=== PATIENT | male | born 1945 | race Caucasian/White ===

== ENCOUNTER 2016-09-20 10:06 | Emergency (ER) | payer MEDICARE ==
[2016-09-20 10:12] VITALS: BP 157/75
--- NOTE | 2016-09-20 10:16 | ER Document Report ---
HPI - HPI Patient complains to provider of: ear pain Onset: Other - months Onset/Duration: Persistent Quality of pain: No pain Pain Level: Denies Context: Patient presents to the emergency department with complaints that his ears are clogged with wax. Patient reports he was here about a year ago and had his ears irrigated. He reports his primary care provider Dr. Figueroa does not irrigate ears. He denies pain. He denies other symptoms such as fever vomiting diarrhea. He reports he was told he needed hearing aids but he thinks it's because his ears are clogged with wax. Associated Symptoms: None Exacerbated by: Denies Relieved by: Denies Similar symptoms previously: Yes Recently seen / treated by doctor: No - REPRODUCTIVE Reproductive: DENIES: : - DERM Skin Color: Normal Past Medical History - General Information source: Patient - Social History Smoking Status: Current Every Day Smoker Cigarette use (# per day): Yes Frequency of alcohol use: None Drug Abuse: None Family History: None Patient has suicidal ideation: No Patient has homicidal ideation: No - Past Medical History Cardiac Medical History: Reports: Hx Heart Attack, Hx Hypercholesterolemia, Hx Hypertension Pulmonary Medical History: Denies: Hx Asthma Neurological Medical History: Denies: Hx Cerebrovascular Accident, Hx Seizures Renal/ Medical History: Denies: Hx Peritoneal Dialysis GI Medical History: Denies: Hx Hepatitis, Hx Hiatal Hernia, Hx Ulcer Psychiatric Medical History: Reports: Hx Anxiety, Hx Depression Infectious Medical History: Denies: Hx Hepatitis Past Surgical History: Reports: Hx Appendectomy, Hx Cardiac Catheterization, Hx Orthopedic Surgery - Broken Leg, Arm, and hip replacement. Denies: Hx Open Heart Surgery - cleaned out arteries, Hx Pacemaker - Immunizations Hx Diphtheria, Pertussis, Tetanus Vaccination: Yes Hx Pneumococcal Vaccination: 06/03/14 Vertical Provider Document - CONSTITUTIONAL Agree With Documented VS: Yes Exam Limitations: No Limitations General Appearance: WD/WN, No Apparent Distress - INFECTION CONTROL TRAVEL OUTSIDE OF THE [place] IN LAST 30 DAYS: No - HEENT HEENT: Atraumatic, Normocephalic. negative: Conjuctival Injection Notes: Bilateral ears with soft wax noted- after irrigation ears benign, no erythema, no swelling - NECK Neck: Normal Inspection, Supple. negative: Lymphadenopathy-Left, Lymphadenopathy-Right - RESPIRATORY Respiratory: Breath Sounds Normal, No Respiratory Distress O2 Sat by Pulse Oximetry: 98 - CARDIOVASCULAR Cardiovascular: Regular Rate - MUSCULOSKELETAL/EXTREMETIES Musculoskeletal/Extremeties: TRE [place] - NEURO Level of Consciousness: Awake, Alert, Appropriate Motor/Sensory: No Motor Deficit - DERM Integumentary: Warm, Dry Course - Re-evaluation Re-evalutation: 09/20/16 Bilateral ear is irrigated some soft earwax pain. Patient reports he doesn't think he has a hearing problem. At the same time he reports he won his hearing aids from [employer] because he had the worst hearing. Patient was instructed on importance of not using a Q-tip and pushing earwax into the years. He was also instructed to follow up with ENT for evaluation. - Vital Signs Vital signs: Temp Pulse Resp BP Pulse Ox 97.7 F 71 18 157/75 H 98 09/20/16 10:09 09/20/16 10:09 09/20/16 10:09 09/20/16 10:09/20/16 10:09 Discharge - Discharge Clinical Impression: Elevated blood pressure reading, Irritation of both ears Condition: Stable Disposition: HOME, SELF-CARE Additional Instructions: *You have been treated for ear irrigation *Use over the counter ear wax softening medication *Follow up with an ENT provider for evaluation and treatment of your ears *Follow up with Dr Figueroa within one week for recheck *Return to the ED for worsening condition,changes, needs Forms: Elevated Blood Pressure Referrals: ENT [Provider Group] - Follow up in 1 week
[2016-09-20] MEDS ORDERED: DOCUSATE SODIUM 100 MG CAPSULE BTH_EAR ONE (10:27)
== END 2016-09-20 11:10 | disposition home or self-care (01) ==
LOC: ER 10:06
DX: H92.03 Otalgia, bilateral (principal); R03.0 Elevated blood-pressure reading, without diagnosis of hypertension; F17.210 Nicotine dependence, cigarettes, uncomplicated
CPT/HCPCS: 99282; A9270

== ENCOUNTER 2017-07-22 08:02 | Emergency (ER) | payer MEDICARE, MEDICAID ==
[2017-07-22] MEDS ORDERED: IBUPROFEN 600 MG TABLET PO ONE (08:19)
--- NOTE | 2017-07-22 08:20 | ER Document Report ---
ED General - General Chief Complaint: Finger Injury Stated Complaint: FALL/FINGER PAIN Time Seen by Provider: 07/22/17 08:18 Mode of Arrival: Ambulatory Information source: Patient Notes: 72-year-old male presents after mechanical fall injuring his hand. He says he fell backwards and tried to catch himself. He notes tenderness of the fifth digit. Skin abrasion to the fourth TRAVEL OUTSIDE OF THE [place] IN LAST 30 DAYS: No - HPI Onset: Yesterday Onset/Duration: Persistent Quality of pain: Achy Severity: Mild Pain Level: 1 Associated symptoms: Body/muscle aches Exacerbated by: Movement Relieved by: Denies Similar symptoms previously: No Recently seen / treated by doctor: No - Related Data Allergies/Adverse Reactions: No Known Allergies Allergy (Verified 09/20/16 10:09) Past Medical History - Social History Smoking Status: Never Smoker Cigarette use (# per day): No Chew tobacco use (# tins/day): No Smoking Education Provided: No Family History: None - Past Medical History Cardiac Medical History: Reports: Hx Heart Attack, Hx Hypercholesterolemia, Hx Hypertension Pulmonary Medical History: Denies: Hx Asthma Neurological Medical History: Denies: Hx Cerebrovascular Accident, Hx Seizures Renal/ Medical History: Denies: Hx Peritoneal Dialysis GI Medical History: Denies: Hx Hepatitis, Hx Hiatal Hernia, Hx Ulcer Psychiatric Medical History: Reports: Hx Anxiety, Hx Depression Infectious Medical History: Denies: Hx Hepatitis Past Surgical History: Reports: Hx Appendectomy, Hx Cardiac Catheterization, Hx Orthopedic Surgery - Broken Leg, Arm, and hip replacement. Denies: Hx Open Heart Surgery - cleaned out arteries, Hx Pacemaker - Immunizations Hx Diphtheria, Pertussis, Tetanus Vaccination: Yes Hx Pneumococcal Vaccination: 06/03/14 Review of Systems - Review of Systems Notes: REVIEW OF SYSTEMS: CONSTITUTIONAL : Denies fever, chills, or sweats. Denies recent illness. EENT: Denies eye, ear, throat, or mouth pain or symptoms. Denies nasal or sinus congestion or discharge. Denies throat, tongue, or mouth swelling or difficulty swallowing. CARDIOVASCULAR: Denies chest pain. Denies palpitations or racing or irregular heart beat. Denies ankle edema. RESPIRATORY: Denies cough, cold, or chest congestion. Denies shortness of breath, difficulty breathing, or wheezing. GASTROINTESTINAL: Denies abdominal pain or distention. Denies nausea, vomiting , or diarrhea. Denies blood in vomitus, stools, or per rectum. Denies black, tarry stools. Denies constipation. GENITOURINARY: Denies difficulty urinating, painful urination, burning, frequency, blood in urine, or discharge. MUSCULOSKELETAL: Admits to finger injury SKIN: Denies rash, lesions or sores. HEMATOLOGIC : Denies easy bruising or bleeding. LYMPHATIC: Denies swollen, enlarged glands. NEUROLOGICAL: Denies confusion or altered mental status. Denies passing out or loss of consciousness. Denies dizziness or lightheadedness. Denies headache. Denies weakness or paralysis or loss of use of either side. Denies problems with gait or speech. Denies sensory loss, numbness, or tingling. Denies seizures. PSYCHIATRIC: Denies anxiety or stress. Denies depression, suicidal ideation, or homicidal ideation. ALL OTHER SYSTEMS REVIEWED AND NEGATIVE. Dictation was performed using [employer] voice recognition software PHYSICAL EXAMINATION: GENERAL: Well-appearing, well-nourished and in no acute distress. HEAD: Atraumatic, normocephalic. EYES: Pupils equal round and reactive to light, extraocular movements intact, sclera anicteric, conjunctiva are normal. ENT: Nares patent, oropharynx clear without exudates. Moist mucous membranes. Difficulty hearing NECK: Normal range of motion, supple without lymphadenopathy LUNGS: Breath sounds clear to auscultation bilaterally and equal. No wheezes rales or rhonchi. HEART: Regular rate and rhythm without murmurs ABDOMEN: Soft, nontender, nondistended abdomen. No guarding, no rebound. No masses appreciated. Musculoskeletal: Swelling with angulation of the fifth digit abrasion of the fourth dorsal NEUROLOGICAL: Cranial nerves grossly intact. Normal speech, normal gait. Normal sensory, motor exams PSYCH: Normal mood, normal affect. SKIN: Mild swelling discoloration of the fifth digit on the right hand Physical Exam - Vital signs Vitals: Temp Pulse Resp BP Pulse Ox 98.2 F 93 20 123/89 H 98 07/22/17 08:09 07/22/17 08:09 07/22/17 08:09 07/22/17 08:09 07/22/17 08:09 Course - Re-evaluation Re-evalutation: 07/22/17 11:42 X-ray was consistent with a proximal phalanx fracture, the finger will be placed in a splint the wound was cleansed patient will be given orthopedic follow-up and pain control there is no significant dislocation but there is no obvious comminuted fracture After performing a Medical Screening Examination, I estimate there is LOW risk for INTRACRANIAL HEMORRHAGE, UNSTABLE SPINE FRACTURE, CENTRAL CORD SYNDROME, CAUDA EQUINA, THORACIC AORTIC DISSECTION, PNEUMOTHORAX, PERFORATED BOWEL, RUPTURED ABDOMINAL AORTIC ANEURYSM, ACUTE TENDON RUPTURE, COMPARTMENT SYNDROME, or OPEN FRACTURE, thus I consider the discharge disposition reasonable. Also, there is no evidence or peritonitis, sepsis, or toxicity. I have reevaluated this patient multiple times and no significant life threatening changes are noted. The patient and I have discussed the diagnosis and risks, and we agree with discharging home to follow-up with their primary doctor with the understanding that symptoms and presentations can change. We also discussed returning to the Emergency Department immediately if new or worsening symptoms occur. We have discussed the symptoms which are most concerning (e.g., bloody stool, fever, changing or worsening pain, vomiting) that necessitate immediate return. - Vital Signs Vital signs: Temp Pulse Resp BP Pulse Ox 98.2 F 93 20 123/89 H 98 07/22/17 08:09 07/22/17 08:09 07/22/17 08:09 07/22/17 08:09 07/22/17 08:09 - Diagnostic Test Radiology reviewed: Image reviewed, Reports reviewed Procedures - Immobilization Right 5th digit Time completed: 11:00 Pre-Proc Neuro Vasc Exam: Normal Immobilizer type: Finger splint (Static) Performed by: RN, PCT Post-Proc Neuro Vasc Exam: Normal Alignment checked and good: Yes Discharge - Discharge Clinical Impression: Finger fracture, right Qualifiers: Encounter type: initial encounter Finger: little finger Fracture type: closed Phalanx: proximal Fracture alignment: nondisplaced Qualified Code(s): S62.646A - Nondisplaced fracture of proximal phalanx of right little finger, initial encounter for closed fracture Condition: Stable Disposition: HOME, SELF-CARE Instructions: Fractured Finger ([facility]) Prescriptions: Hydrocodone/Acetaminophen [[place] 5-325 mg Tablet] 1 tab PO Q6 #14 tablet Referrals: XIOMARA HAWTHORNE DO [ACTIVE STAFF] - Follow up in 3-5 days
--- NOTE | 2017-07-22 08:43 | RADIOLOGY REPORT (SQ) ---
EXAM DESCRIPTION: HAND RIGHT 3 VIEWS COMPLETED DATE/TIME: 07/22/2017 8:36 am REASON FOR STUDY: 5th digit COMPARISON: None. EXAM PARAMETERS: NUMBER OF VIEWS: Three views. TECHNIQUE: AP, lateral and oblique radiographic images acquired of the right hand. LIMITATIONS: None. FINDINGS: MINERALIZATION: Normal. BONES: Comminuted impacted fracture at the base of the proximal phalanx of the 5th finger. Old fract ure of the 5th metacarpal. JOINTS: Degenerative changes in the interphalangeal joints with osteophytes. SOFT TISSUES: No soft tissue swelling. No foreign body. OTHER: No other significant finding. IMPRESSION: COMMINUTED IMPACTED FRACTURE AT THE BASE OF THE PROXIMAL PHALANX OF THE 5TH FINGER. TECHNICAL DOCUMENTATION: JOB ID: [id number] [employer]- All Rights Reserved
[2017-07-22] MEDS ORDERED: HYDROCODONE/ACETAMINOPHEN 5-325 MG TABLET PO ONE (09:11)
[2017-07-22 10:08] VITALS: BP 132/80
== END 2017-07-22 10:05 | disposition home or self-care (01) ==
LOC: ER 08:02
DX: S62.646A Nondisplaced fracture of proximal phalanx of right little finger, initial encounter for closed fracture (principal); S60.418A Abrasion of other finger, initial encounter; W01.0XXA Fall on same level from slipping, tripping and stumbling without subsequent striking against object, initial encounter; I10 Essential (primary) hypertension; I25.2 Old myocardial infarction
CPT/HCPCS: 99283; 73130; A9270

== ENCOUNTER 2017-07-24 06:24 | Emergency (ER) | payer MEDICARE, MEDICAID ==
[2017-07-24 06:30] VITALS: BP 134/72
--- NOTE | 2017-07-24 07:49 | ER Document Report ---
HPI - HPI Pain Level: Denies Notes: Patient is 72-year-old male who presents ED requesting a splint to make his finger straight status post fracture 2 days ago. Patient states that he was told that he should come back here for a new splint if he needed to. He has not yet called Ortho for his finger fracture. Pt states that he does not need to see anyone else and just wants a finger splint that goes over top of his finger. No other concerns or complaints. He has not had any worsening pain. Pt still able to move his finger, but does not swelling. Denies any headache, fever, neck pain, URI, sore throat, chest pain, palpitations, syncope, cough, shortness of breath, wheeze, dyspnea, abdominal pain, nausea/vomiting/diarrhea, urinary retention, dysuria, hematuria, numbness/tingling, or rash. - ROS Systems Reviewed and Negative: Yes All other systems reviewed and negative - REPRODUCTIVE Reproductive: DENIES: : Past Medical History - Social History Smoking Status: Current Every Day Smoker Family History: None - Past Medical History Cardiac Medical History: Reports: Hx Heart Attack, Hx Hypercholesterolemia, Hx Hypertension Pulmonary Medical History: Denies: Hx Asthma Neurological Medical History: Denies: Hx Cerebrovascular Accident, Hx Seizures Renal/ Medical History: Denies: Hx Peritoneal Dialysis GI Medical History: Denies: Hx Hepatitis, Hx Hiatal Hernia, Hx Ulcer Psychiatric Medical History: Reports: Hx Anxiety, Hx Depression Infectious Medical History: Denies: Hx Hepatitis Past Surgical History: Reports: Hx Appendectomy, Hx Cardiac Catheterization, Hx Orthopedic Surgery - Broken Leg, Arm, and hip replacement. Denies: Hx Open Heart Surgery - cleaned out arteries, Hx Pacemaker - Immunizations Hx Diphtheria, Pertussis, Tetanus Vaccination: Yes Hx Pneumococcal Vaccination: 06/03/14 Vertical Provider Document - CONSTITUTIONAL Agree With Documented VS: Yes Notes: PHYSICAL EXAMINATION: GENERAL: Well-appearing, well-nourished and in no acute distress. LUNGS: Breath sounds clear to auscultation bilaterally and equal. No wheezes rales or rhonchi. HEART: Regular rate and rhythm without murmurs, rubs, gallops. Musculoskeletal: Rt hand: + deformity at MCP 5th digit. + swelling to the 5th phalanx. Non-tender. N/V intact distal. Extremities: No cyanosis, clubbing, or edema b/l. Peripheral pulses 2+. Capillary refill less than 3 seconds. NEUROLOGICAL: Normal speech, normal gait. Normal sensory, motor exams PSYCH: Normal mood, normal affect. SKIN: Warm, Dry, normal turgor, no rashes or lesions noted. - INFECTION CONTROL TRAVEL OUTSIDE OF THE [place] IN LAST 30 DAYS: No - RESPIRATORY O2 Sat by Pulse Oximetry: 96 Course - Re-evaluation Re-evalutation: 07/24/17 07:56 Patient is an afebrile, well-hydrated, 72-year-old male who presents to the ED with continued proximal, comminuted, fifth phalanx fracture of the right hand. Vitals are stable. PE is otherwise unremarkable for any neurovascular compromise or septic joint. Patient is under the impression that he does not need to be seen by orthopedics, but upon review of the x-ray looks like it might need a wire. Yesterday I told patient that he is most concerned about his PIP joint being in a flexed position to the swelling, but that is not where the fracture is in the his finger will straighten out at that area and the swelling improves. Advised patient that he has a comminuted fracture at the base of his fifth finger and that is why he has the deformity there and he needs to be evaluated by orthopedics. Recommend conservative measures for symptoms. call orthopedics today and schedule an appointment for further evaluation and management. Recheck with your PCM in 3-5 days as well. Return to the ED with any worsening/concerning symptoms otherwise as reviewed discharge. Patient was not happy that I would not give him a different splint for his PIP joint, I again reiterated the need to call orthopedics in the keep the ulnar gutter style splint that was placed originally. Thoroughly reviewed the risks and benefits of seeing orthopedics versus not doing anything about it at home. patient verbalized understanding of this. Patient continued to ask the same question, and I am not sure he wants to understand what I keep telling him about the swelling and further eval to make sure his finger does not heal deformed with dec function. Pt would not sign his discharge paper and will go call his doctor. This was witnessed by multiple nurses including charge. Repeated over and over again to call the number on his discharge sheet and schedule an appointment. - Vital Signs Vital signs: Temp Pulse Resp BP Pulse Ox 97.5 F 85 16 134/72 H 96 07/24/17 06:29 07/24/17 06:29 07/24/17 06:29 07/24/17 06:29 07/24/17 06:29 Discharge - Discharge Clinical Impression: Fracture of phalanx of finger of right hand Qualifiers: Encounter type: initial encounter Finger: little finger Fracture type: closed Phalanx: proximal Fracture alignment: nondisplaced Qualified Code(s): S62.646A - Nondisplaced fracture of proximal phalanx of right little finger, initial encounter for closed fracture Condition: Stable Disposition: HOME, SELF-CARE Instructions: Splint Precautions ([facility]) Additional Instructions: Rest, Ice, Compression, Elevation Use splint as directed Tylenol/ibuprofen as needed F/u with your PCP in 3-5 days for a recheck Call orthopedics today to schedule an appointment for further evaluation and management Return to the ED with any worsening symptoms and/or development of fever, headache, chest pain, palpitations, syncope, shortness of breath, trouble breathing, abdominal pain, n/v/d, muscle weakness/paralysis, numbness/tingling, swelling, redness, or other worsening symptoms that are concerning to you. Forms: Elevated Blood Pressure, Smoking Cessation Education Referrals: [facility] [Provider Group] - 07/24/17
== END 2017-07-24 08:28 | disposition home or self-care (01) ==
LOC: ER 06:24
DX: S62.646A Nondisplaced fracture of proximal phalanx of right little finger, initial encounter for closed fracture (principal); X58.XXXA Exposure to other specified factors, initial encounter; F17.200 Nicotine dependence, unspecified, uncomplicated; I25.2 Old myocardial infarction; I10 Essential (primary) hypertension
CPT/HCPCS: 99282

== ENCOUNTER 2019-05-20 18:43 | Emergency (ER) | payer MEDICARE, MEDICAID ==
--- NOTE | 2019-05-20 20:08 | ER Document Report ---
ED Medical Screen (RME) - General Chief Complaint: Laceration Stated Complaint: FALL/RIGHT ARM LACERATION Time Seen by Provider: 05/20/19 20:02 Primary Care Provider: JUAN MONTENEGRO MD [Primary Care Provider] - Follow up as needed Mode of Arrival: Wheelchair Information source: Patient, Relative Notes: 74-year-old male presented to ED for laceration to the upper left arm and elbow and lower arm he also has some scratches to the right arm. He was confused about what happened he said he fell on his stump but his grandson found him in the scrap yard under a pile of 10. Daughter states he fell about 6 PM. Patient is alert and oriented and answering questions appropriately at this time. He does have multiple lacerations will need to be cleaned and sutured. He is on blood thinners. Tetanus immunization will be ordered at this time. I have updated his history. I have greeted and performed a rapid initial assessment of this patient. A comprehensive ED assessment and evaluation of the patient, analysis of test results and completion of medical decision making process will be conducted by an additional ED providers. TRAVEL OUTSIDE OF THE [place] IN LAST 30 DAYS: No - Related Data Allergies/Adverse Reactions: No Known Allergies Allergy (Verified 05/20/19 20:00) Past Medical History - General Information source: Patient - Social History Cigarette use (# per day): Yes - 1-1/2 pack/day Frequency of alcohol use: None Drug Abuse: None Lives with: Family Family history: Reviewed & Not Pertinent - Past Medical History Cardiac Medical History: Reports: Hx Heart Attack, Hx Hypercholesterolemia, Hx Hypertension Pulmonary Medical History: Reports: None EENT Medical History: Reports: None Neurological Medical History: Reports: None Endocrine Medical History: Reports: None Renal/ Medical History: Reports: None Malignancy Medical History: Reports None GI Medical History: Reports: None Musculoskeltal Medical History: Reports Hx Arthritis, Reports Hx Musculoskeletal Deformity, Reports Hx Musculoskeletal Trauma Skin Medical History: Reports None - Also cleaned out the arteries and 1 today because of you ER and you backcut you will get a tetanus unless you can tell me a day Psychiatric Medical History: Reports: Hx Anxiety, Hx Depression Traumatic Medical History: Reports: Hx Fractures Infectious Medical History: Reports: None Past Surgical History: Reports: Hx Appendectomy, Hx Cardiac Catheterization, Hx Coronary Stent - Also cleaned out the arteries, Hx Orthopedic Surgery - Broken Leg, Arm, and hip replacement - Immunizations Hx Diphtheria, Pertussis, Tetanus Vaccination: Yes Physical Exam - Vital signs Vitals: Temp Pulse Resp BP Pulse Ox 98.0 F 107 H 20 152/83 H 98 05/20/19 19:42 05/20/19 19:42 05/20/19 19:42 05/20/19 19:42 05/20/19 19:42 Course - Vital Signs Vital signs: Temp Pulse Resp BP Pulse Ox 98.0 F 107 H 20 152/83 H 98 05/20/19 19:42 05/20/19 19:42 05/20/19 19:42 05/20/19 19:42 05/20/19 19:42 Doctor's Discharge - Discharge Referrals: JUAN MONTENEGRO MD [Primary Care Provider] - Follow up as needed
[2019-05-20] MEDS ORDERED: DIPH/PERTUSS(ACELL)/TETANUS VAC/PF 0.5 ML SYR (>=10YO) IM ONE (20:09)
--- NOTE | 2019-05-20 21:10 | RADIOLOGY REPORT (SQ) ---
2 VIEWS OF RIGHT FOREARM EXAM DATE: 05/20/2019 8:12 PM IMPORT MANAGER HISTORY: Arm pain. COMPARISON: None. FINDINGS: No acute fracture or dislocation is seen. The joint spaces are preserved. No radiopaque foreign body is identified. The surrounding soft tissues are swollen. No elbow joint effusion is seen. IMPRESSION: No acute fracture or malalignment.
--- NOTE | 2019-05-20 21:10 | RADIOLOGY REPORT (SQ) ---
EXAM DESCRIPTION: Right humerus RadLex: XR HUMERUS Views: 2 CLINICAL HISTORY: 74 years Male, fallinjury COMPARISON: None. FINDINGS: Negative for acute fracture, dislocation, or radiopaque foreign body. IMPRESSION: 1. No acute findings.
--- NOTE | 2019-05-20 22:09 | ER Document Report ---
ED Fall - General Chief Complaint: Laceration Stated Complaint: FALL/RIGHT ARM LACERATION Time Seen by Provider: 05/20/19 20:02 Primary Care Provider: RANGEL SPARROW MD [ACTIVE STAFF] - Follow up tomorrow Mode of Arrival: Wheelchair Information source: Patient Notes: Patient is a 74-year-old male that comes to the emergency department for chief complaint of of injuries sustained when patient was rummaging in a trash dump and trash fell over onto the patient. This was witnessed by the of the daughter at bedside, reportedly a variety of verbal fell down on the patient. Patient was able to get out and walk but he sustained abrasions to the right forearm, bruise to the left shoulder, bruise to the right lower rib, and his hat was covered in dirt. Patient also has tiny abrasions over the left ear. Patient does not remember the event but family states that patient has dementia and has poor memory at baseline, they state this is expected for him. He was not knocked out, he is not on a blood thinner, he denies chest pain, abdominal pain, headache, focal numbness or weakness, incontinence. Patient's tetanus is not up-to-date. TRAVEL OUTSIDE OF THE [place] IN LAST 30 DAYS: No - Related data Allergies/Adverse Reactions: No Known Allergies Allergy (Verified 05/20/19 20:00) Home Medications: BLOOD THINNERS Past Medical History - General Information source: Patient - Social History Smoking Status: Current Every Day Smoker Cigarette use (# per day): Yes - 1-1/2 pack/day Frequency of alcohol use: None Drug Abuse: None Lives with: Family Family History: None Patient has suicidal ideation: No Patient has homicidal ideation: No - Past Medical History Cardiac Medical History: Reports: Hx Heart Attack, Hx Hypercholesterolemia, Hx Hypertension Pulmonary Medical History: Reports: None EENT Medical History: Reports: None Neurological Medical History: Reports: None Endocrine Medical History: Reports: None Renal/ Medical History: Reports: None Malignancy Medical History: Reports None GI Medical History: Reports: None Musculoskeletal Medical History: Reports Hx Arthritis, Reports Hx Musculoskeletal Deformity, Reports Hx Musculoskeletal Trauma Skin Medical History: Reports None - Also cleaned out the arteries and 1 today because of you ER and you backcut you will get a tetanus unless you can tell me a day Psychiatric Medical History: Reports: Hx Anxiety, Hx Depression Traumatic Medical History: Reports: Hx Fractures Infectious Medical History: Reports: None Past Surgical History: Reports: Hx Appendectomy, Hx Cardiac Catheterization, Hx Coronary Stent - Also cleaned out the arteries, Hx Orthopedic Surgery - Broken Leg, Arm, and hip replacement - Immunizations Hx Diphtheria, Pertussis, Tetanus Vaccination: Yes Hx Pneumococcal Vaccination: 06/03/14 Review of Systems - Review of Systems Constitutional: No symptoms reported EENT: No symptoms reported Cardiovascular: No symptoms reported Respiratory: No symptoms reported Gastrointestinal: No symptoms reported Genitourinary: No symptoms reported Male Genitourinary: No symptoms reported Musculoskeletal: See HPI Skin: See HPI Hematologic/Lymphatic: No symptoms reported Neurological/Psychological: See HPI Physical Exam - Vital signs Vitals: Temp Resp Pulse Ox 98.0 F 20 98 05/20/19 18:44 05/20/19 18:44 05/20/19 18:44 - Notes Notes: GENERAL: Alert, interacts well. No acute distress. HEAD: Normocephalic, atraumatic. EYES: Pupils equal, round, and reactive to light. Extraocular movements intact. ENT: Oral mucosa moist, tongue midline. Oropharynx unremarkable. Airway patent. Tiny abrasion over the left ear at the helix without current bleeding. No other signs of trauma over the head. Hard of hearing. NECK: Full range of motion. Supple. Trachea midline. LUNGS: Clear to auscultation bilaterally, no wheezes, rales, or rhonchi. No respiratory distress. There is a small bruise over the right lateral inferior ribs, no surrounding swelling, no other signs of trauma over the chest. No significant pain over the area. HEART: Regular rate and rhythm. No murmur ABDOMEN: Soft, non-tender. Non-distended. No signs of trauma. EXTREMITIES: Superficial skin abrasions over the elbow laterally and also over the distal forearm medially on the right arm. No significant soft tissue swelling, full range of motion. No significant lacerations, all areas are superficial only. Normal distal neurovascular exam. There is swelling over the left clavicle and left shoulder with a large bruise laterally and posteriorly over the shoulder tip. Left arm is unremarkable. Questionable minimal tenderness over both hips, normal knees, ankles, distal neurovascular exam. Normal extremities otherwise. BACK: no cervical, thoracic, lumbar midline tenderness. No saddle anesthesia, normal distal neurovascular exam. Moves all extremities in full range of motion. NEUROLOGICAL: Alert and oriented to person and place but not to all of the events. Normal speech. Cranial nerves II through XII grossly intact. PSYCH: Normal affect, normal mood. SKIN: Warm, dry, normal turgor. No rashes or lesions noted. Course - Re-evaluation Re-evalutation: I did review the x-rays of the arm from triage, unremarkable. Skin abrasions only over the area, these were cleaned thoroughly, dressed, and Steri-Stripped. Additional imaging had to be ordered based on his evaluation, no rib fracture or lung collapse, patient denying any rib pain but he does have a bruise over the right lower lateral ribs so this was included. He also be given incentive spirometry to avoid pneumonia because of bruised ribs and hypoventilation. Imaging of the head and neck unremarkable, left clavicle is fractured, no neurovascular deficits. No other concerning injuries noted. Discussed with patient and family at length. Placed in sling, provided with pain medication, discussed wound care, discussed monitoring, follow-up, return precautions. They state appreciation and agreement. - Vital Signs Vital signs: Temp Pulse Resp BP Pulse Ox 97.8 F 94 14 148/72 H 98 05/21/19 00:15 05/21/19 00:15 05/21/19 00:15 05/21/19 00:15 05/21/19 00:15 Procedures - Immobilization Left arm/shoulder Pre-Proc Neuro Vasc Exam: Normal Immobilizer type: Sling Performed by: RN Post-Proc Neuro Vasc Exam: Normal Alignment checked and good: Yes Discharge - Discharge Clinical Impression: Skin tear Rib contusion Qualifiers: Encounter type: initial encounter Laterality: right Qualified Code(s): S20.211A - Contusion of right front wall of thorax, initial encounter Closed left clavicular fracture Qualifiers: Encounter type: initial encounter Clavicle location: lateral end Fracture alignment: displaced Qualified Code(s): S42.032A - Displaced fracture of lateral end of left clavicle, initial encounter for closed fracture Condition: Stable Disposition: HOME, SELF-CARE Additional Instructions: He has a fracture of the left clavicle, he also has skin tears on the right arm. He has bruises over the right ribs. For the fracture wear the sling, take 1/2-1 of the pain medication pills as needed for pain, if you so also use the stool softener to avoid constipation. Follow closely with orthopedics for additional management, see referral. For the skin tears the Steri-Strips will come off on their own in a few days, this area can be cleaned gently with soap and water and redressed. Keep bacitracin over the wounds otherwise. For the bruised area/bruised ribs it is important that he takes deep breaths several times a day to avoid developing pneumonia. Use the incentive spirometry as shown daily to avoid this. Return for any concerning symptoms including difficulty breathing, fever, developing infection over the arm, or any other concerning or worsening symptoms. Prescriptions: Docusate Sodium [Colace 100 mg Capsule] 100 mg PO ASDIR PRN #30 capsule PRN Reason: Morphine Sulfate [Morphine Ir 15 Mg Tablet] 15 mg PO TID PRN #12 tablet PRN Reason: Referrals: RANGLE SPARROW MD [ACTIVE STAFF] - Follow up tomorrow
--- NOTE | 2019-05-20 22:49 | RADIOLOGY REPORT (SQ) ---
EXAM DESCRIPTION: CT HEAD WITHOUT IV CONTRAST COMPLETED DATE/TME: 05/20/2019 22:05 CLINICAL HISTORY: 74 years, Male, fall, head injury, amnesia to event COMPARISON: None. TECHNIQUE: 208 Images stored on PACS. All CT scanners at this facility use dose modulation, iterative reconstruction, and/or weight based dosing when appropriate to reduce radiation dose to as low as reasonably achievable (ALARA). [facility]: Dose Right [facility]: CareDose [facility]: Dose Right [facility]: Teradose 4D [facility]: [employer] LIMITATIONS: None. FINDINGS: The globes are intact. The paranasal sinuses and mastoid air cells are unremarkable. There is no displaced or depressed skull fracture. There is no intra or extra-axial hemorrhage. Mild age-appropriate atrophy. CT is limited for evaluation of acute infarct. No CT evidence for large or territorial acute infarct. No mass. No midline shift. Hypodensities in the periventricular and subcortical white matter, consistent with small vessel ischemic change IMPRESSION: No acute intracranial abnormality. Age-appropriate atrophy and small vessel ischemic change TECHNICAL DOCUMENTATION: Quality ID # 436: Final reports with documentation of one or more dose reduction techniques (e.g., Automated exposure control, adjustment of the mA and/or kV according to patient size, use of iterative reconstruction technique) copyright 2011 [email or web address]- All Rights Reserved
--- NOTE | 2019-05-20 22:49 | RADIOLOGY REPORT (SQ) ---
EXAM DESCRIPTION: CT CERVICAL SPINE WITHOUT IV CONTRAST COMPLETED DATE/TME: 05/20/2019 22:05 CLINICAL HISTORY: 74 years, Male, head injury, neck pain COMPARISON: None. TECHNIQUE: 238 Images stored on PACS. All CT scanners at this facility use dose modulation, iterative reconstruction, and/or weight based dosing when appropriate to reduce radiation dose to as low as reasonably achievable (ALARA). [facility]: Dose Right [facility]: CareDose [facility]: Dose Right [facility]: Teradose 4D [facility]: [employer] LIMITATIONS: None. FINDINGS: Evaluation of spinal canal contents limited due to CT technique. However, vertebral body height and alignment is preserved. Multilevel degenerative change throughout the cervical spine with ossific spurring, endplate degenerative change, facet arthropathy and uncovertebral joint hypertrophy. The prevertebral soft tissues are normal. Biapical pleural thickening is noted IMPRESSION: No CT evidence for acute C-spine abnormality TECHNICAL DOCUMENTATION: Quality ID # 436: Final reports with documentation of one or more dose reduction techniques (e.g., Automated exposure control, adjustment of the mA and/or kV according to patient size, use of iterative reconstruction technique) copyright 2011 [employer]- All Rights Reserved
--- NOTE | 2019-05-20 23:06 | RADIOLOGY REPORT (SQ) ---
EXAM DESCRIPTION: XR RIBS UNILATERAL WITH CHEST COMPLETED DATE/TME: 05/20/2019 22:05 CLINICAL HISTORY: 74 years, Male, fall, bruising to right lower ribs COMPARISON: None. NUMBER OF VIEWS: 3 TECHNIQUE: Frontal view the chest and 2 views of the right ribs LIMITATIONS: None. FINDINGS: Heart size is normal. Atheromatous change of the thoracic aorta. Partial visualization of a fracture of the distal left clavicle. Lungs are clear. No pneumothorax Osteopenia. Negative for right rib fracture. IMPRESSION: No acute cardiopulmonary process. Negative for right rib fracture copyright 2010 [email or web address]- All Rights Reserved
--- NOTE | 2019-05-20 23:09 | RADIOLOGY REPORT (SQ) ---
EXAM DESCRIPTION: XR SHOULDER 2 OR MORE VIEWS COMPLETED DATE/TME: 05/20/2019 22:07 CLINICAL HISTORY: 74 years, Male, fall, bruising/swelling COMPARISON: None. NUMBER OF VIEWS: 3 TECHNIQUE: 3 views of the left shoulder LIMITATIONS: None. FINDINGS: Osteopenia. Atheromatous change of the thoracic aorta. Mildly displaced fracture of the distal clavicle, however the acromial clavicular joint is preserved. The glenohumeral joint is preserved. No evidence for pneumothorax IMPRESSION: Mildly displaced fracture of the distal clavicle. Osteopenia. copyright 2010 [employer]- All Rights Reserved
--- NOTE | 2019-05-20 23:13 | RADIOLOGY REPORT (SQ) ---
EXAM DESCRIPTION: XR HIP 2 OR MORE VIEWS COMPLETED DATE/TME: 05/20/2019 22:07 CLINICAL HISTORY: 74 years, Male, fall, limping COMPARISON: None. NUMBER OF VIEWS: 2 TECHNIQUE: AP pelvis single view right hip LIMITATIONS: None. FINDINGS: Negative for acute fracture or dislocation. Osteopenia. Minor degenerative change. Postsurgical changes of the left hip. IMPRESSION: No acute osseous abnormality copyright 2010 [employer]- All Rights Reserved
[2019-05-20] MEDS ORDERED: MORPHINE SULFATE IR 15 MG TABLET PO ONE (23:34)
[2019-05-21 00:17] VITALS: BP 148/72
== END 2019-05-21 00:39 | disposition home or self-care (01) ==
LOC: ER 18:43
DX: S42.032A Displaced fracture of lateral end of left clavicle, initial encounter for closed fracture (principal); S20.211A Contusion of right front wall of thorax, initial encounter; S41.111A Laceration without foreign body of right upper arm, initial encounter; S00.412A Abrasion of left ear, initial encounter; W19.XXXA Unspecified fall, initial encounter; F17.210 Nicotine dependence, cigarettes, uncomplicated; I25.2 Old myocardial infarction; I10 Essential (primary) hypertension
CPT/HCPCS: 99283; 90471; 73090; 73502; 73060; 71101; 73030; 70450; 72125; 90715; A9270

== ENCOUNTER 2019-07-14 18:41 | Emergency (ER) | payer MEDICARE, MEDICAID ==
--- NOTE | 2019-07-14 19:25 | ER Document Report ---
ED Medical Screen (RME) - General Chief Complaint: Altered Mental Status Stated Complaint: HALLUCINATING,DISORIENTED Time Seen by Provider: 07/14/19 19:21 Primary Care Provider: VIRGILIO EMERSON DO [Primary Care Provider] - Follow up as needed Notes: HPI: History obtained from the patient and the granddaughter. 74-year-old male brought in for altered mentation worsening over the last week. No definitive fever. Patient does have a cough. Granddaughter indicates that he has been speaking to his at home, increasing altered behaviors at home. I have greeted and performed a rapid initial assessment of this patient. A comprehensive ED assessment and evaluation of the patient, analysis of test results and completion of the medical decision making process will be conducted by additional ED providers PHYSICAL EXAMINATION: GENERAL: Chronically ill-appearing, well-nourished and in no acute distress. HEAD: Atraumatic, normocephalic. EYES: sclera anicteric, conjunctiva are normal. ENT: Moist mucous membranes. NECK: Normal range of motion, regular rate and rhythm LUNGS: Normal work of breathing, lung sounds decreased in the bases HEART: 2+ radial pulses bilaterally ABD: limited by positioning for exam in triage. EXTREMITIES: no pitting or edema. No cyanosis. NEUROLOGICAL: No focal neurological deficits. Moves all extremities spontaneously and on command. PSYCH: Normal mood, normal affect. Patient is able to give me the month and the year but does make some random statements that do not have bearing on the current conversation SKIN: Warm, Dry, normal turgor, no rashes or lesions noted. TRAVEL OUTSIDE OF THE [place] IN LAST 30 DAYS: No - Related Data Allergies/Adverse Reactions: No Known Allergies Allergy (Verified 07/14/19 19:09) Past Medical History - Social History Family history: Reviewed & Not Pertinent - Past Medical History Cardiac Medical History: Reports: Hx Heart Attack, Hx Hypercholesterolemia, Hx Hypertension Musculoskeltal Medical History: Reports Hx Arthritis, Reports Hx Musculoskeletal Deformity, Reports Hx Musculoskeletal Trauma Psychiatric Medical History: Reports: Hx Anxiety, Hx Depression Traumatic Medical History: Reports: Hx Fractures Past Surgical History: Reports: Hx Appendectomy, Hx Cardiac Catheterization, Hx Coronary Stent - Also cleaned out the arteries, Hx Orthopedic Surgery - Broken Leg, Arm, and hip replacement - Immunizations Hx Diphtheria, Pertussis, Tetanus Vaccination: Yes Physical Exam - Vital signs Vitals: Temp Pulse Resp BP Pulse Ox 97.9 F 88 16 141/66 H 94 07/14/19 19:09 07/14/19 19:09 07/14/19 19:09 07/14/19 19:09 07/14/19 19:09 Course - Vital Signs Vital signs: Temp Pulse Resp BP Pulse Ox 97.9 F 88 16 141/66 H 94 07/14/19 19:09 07/14/19 19:09 07/14/19 19:09 07/14/19 19:09 07/14/19 19:09 Doctor's Discharge - Discharge Referrals: VIRGILIO EMERSON DO [Primary Care Provider] - Follow up as needed
--- NOTE | 2019-07-14 20:17 | RADIOLOGY REPORT (SQ) ---
XR CHEST 2 VIEWS CLINICAL STATEMENT: AMS COMPARISON: 05/20/2019 FINDINGS: Heart is mildly enlarged. Aortic arch is mildly calcified. There is no focal lung consolidation or pleural effusion. No evidence of pulmonary edema or pneumothorax. IMPRESSION: No acute cardiopulmonary disease.
[2019-07-14 21:04] LABS: ABSOLUTE BASOPHILS # (AUTO) 0.1 10^3/uL (0.0-0.2); ABSOLUTE EOSINOPHILS # (AUTO) 0.2 10^3/uL (0.0-0.6); ABSOLUTE LYMPHOCYTES (AUTO) 2.2 10^3/uL (0.5-4.7); ABSOLUTE MONOCYTES (AUTO) 0.8 10^3/uL (0.1-1.4); ABSOLUTE NEUT (AUTO) 3.7 10^3/uL (1.7-8.2); BASOPHILS % (AUTO) 0.9 % (0-2); EOSINOPHILS % (AUTO) 3.4 % (0-6); HEMOGLOBIN 14.6 g/dL (13.5-17.0); LYMPHOCYTES % (AUTO) 31.8 % (13-45); MEAN CORPUSCULAR HEMOGLOBIN 30.5 pg (27.0-33.4); MEAN CORPUSCULAR VOLUME 90 fl (80-97); PLATELET COUNT 241 10^3/uL (150-450); RED BLOOD COUNT 4.79 10^6/uL (4.35-5.55); SEGMENTED NEUTROPHILS % (AUTO) 52.9 % (42-78); TOTAL CELLS COUNTED % (AUTO) 100 %; WHITE BLOOD COUNT 6.9 10^3/uL (4.0-10.5)
[2019-07-14 21:14] LABS: ALBUMIN 4.1 g/dL (3.5-5.0); ALKALINE PHOSPHATASE 87 U/L (38-126); ANION GAP 9 (5-19); ASPARTATE AMINO TRANSFERASE 26 U/L (17-59); BILIRUBIN,TOTAL 0.3 mg/dL (0.2-1.3); BLOOD UREA NITROGEN 19 mg/dL (7-20); CARBON DIOXIDE 29 mmol/L (22-30); CHLORIDE 102 mmol/L (98-107); GLUCOSE 90 mg/dL (75-110); POTASSIUM 3.6 mmol/L (3.6-5.0); TOTAL PROTEIN 7.1 g/dL (6.3-8.2)
--- NOTE | 2019-07-14 21:53 | EKG REPORT ---
SEVERITY:- ABNORMAL ECG - SINUS RHYTHM SUPRAVENTRICULAR BIGEMINY LEFT BUNDLE BRANCH BLOCK : Confirmed by: Ana Perez MD 14-Jul-2019 21:52:20
--- NOTE | 2019-07-14 23:35 | ER Document Report ---
ED General - General Chief Complaint: Altered Mental Status Stated Complaint: HALLUCINATING,DISORIENTED Time Seen by Provider: 07/14/19 19:21 Primary Care Provider: VIRGILIO EMERSON DO [Primary Care Provider] - Follow up as needed Mode of Arrival: Ambulatory Information source: Patient, Relative Cannot obtain history due to: Altered mental status TRAVEL OUTSIDE OF THE [place] IN LAST 30 DAYS: No - HPI Onset: Other - over the last week Onset/Duration: Gradual Quality of pain: No pain Severity: Moderate Pain Level: Denies Associated symptoms: Other - confusion, weakness Exacerbated by: Denies Relieved by: Denies Similar symptoms previously: Yes - patient became confused when he had a hip infection in the past Recently seen / treated by doctor: Yes - Patient was seen in this ER in Mid May after a fall. He had imaging Notes: 74 year old male with a history of COPD, HTN, HLD, CAD s/p Stent, Arthritis, Chronic Pain, Anxiety, Depression brought in by his granddaughter for concern of altered mental status over the last week. According to the patient's granddaughter, the patient has been disoriented and confused and she remembers him have this happen before when he had a hip infection. The patient is confused at present and not a reliable historian. The patient has no real complaints when asked himself. - Related Data Allergies/Adverse Reactions: No Known Allergies Allergy (Verified 07/14/19 19:09) Past Medical History - General Information source: Patient, Relative Cannot obtain history due to: Altered mental status - Social History Smoking Status: Current Every Day Smoker Frequency of alcohol use: None Drug Abuse: None Lives with: Alone Family History: Reviewed & Not Pertinent Patient has suicidal ideation: No Patient has homicidal ideation: No - Past Medical History Cardiac Medical History: Reports: Hx Heart Attack, Hx Hypercholesterolemia, Hx Hypertension Musculoskeletal Medical History: Reports Hx Arthritis, Reports Hx Musculoskeleta l Deformity, Reports Hx Musculoskeletal Trauma Psychiatric Medical History: Reports: Hx Anxiety, Hx Depression Traumatic Medical History: Reports: Hx Fractures Past Surgical History: Reports: Hx Appendectomy, Hx Cardiac Catheterization, Hx Coronary Stent - Also cleaned out the arteries, Hx Orthopedic Surgery - Broken Leg, Arm, and hip replacement - Immunizations Hx Diphtheria, Pertussis, Tetanus Vaccination: Yes Hx Pneumococcal Vaccination: 06/03/14 Review of Systems - Review of Systems -: Yes ROS unobtainable due to patient's medical condition Constitutional: No symptoms reported EENT: No symptoms reported Cardiovascular: No symptoms reported Respiratory: No symptoms reported Gastrointestinal: No symptoms reported Genitourinary: No symptoms reported Male Genitourinary: No symptoms reported Musculoskeletal: No symptoms reported Skin: No symptoms reported Hematologic/Lymphatic: No symptoms reported Neurological/Psychological: Confusion -: Yes All other systems reviewed and negative Physical Exam - Vital signs Vitals: Temp Pulse Resp BP Pulse Ox 97.9 F 88 16 141/66 H 94 07/14/19 19:09 07/14/19 19:09 07/14/19 19:09 07/14/19 19:07/14/19 19:09 - Notes Notes: GENERAL: Well-appearing, well-nourished and in no acute distress, patient smells of cigarette smoke. HEAD: Atraumatic, normocephalic. EYES: Pupils equal round and reactive to light, extraocular movements intact, sclera anicteric, conjunctiva are normal. ENT: TMs normal, nares patent, oropharynx clear without exudates. Moist mucous membranes. NECK: Normal range of motion, supple without lymphadenopathy or JVD. LUNGS: Breath sounds clear to auscultation bilaterally and equal. No wheezes rales or rhonchi. HEART: Regular rate and rhythm without murmurs, rubs or gallops. ABDOMEN: Soft, nontender, normoactive bowel sounds. No guarding, no rebound. No masses appreciated. EXTREMITIES: Normal range of motion, no pitting or edema. No clubbing or cyanosis. NEUROLOGICAL: Cranial nerves II through XII grossly intact. Normal speech, normal gait. Patient is oriented to person but not place or time or situation. PSYCH: Normal mood, normal affect. SKIN: Warm, Dry, normal turgor, no rashes or lesions noted. Clubbing of finger nails. Course - Re-evaluation Re-evalutation: 07/15/19 02:30 The patient has apparently been acting confused in the last week which his granddaughter says is new for him. The granddaughter says the patient has been confused like this in the past with infections and when he was on ativan. Patient has no signs of infection on exam or by his work up in the ER today and his urine tox is negative. Patient's head CT shows no acute process. Patient and his grandfather told to follow up with his PCP in the next few days. Dementia is possible despite the patient's granddaughter saying this is a relatively new change in mental status. - Vital Signs Vital signs: Temp Pulse Resp BP Pulse Ox 97.9 F 88 15 147/77 H 97 07/14/19 19:09 07/14/19 21:47 07/14/19 22:09 07/14/19 22:09 07/14/19 22:09 - Laboratory Result Diagrams: 07/14/19 20:30 07/14/19 20:30 Laboratory results interpreted by me: 07/15/19 07/15/19 07/15/19 00:41 00:50 01:18 Carbonic Acid 1.02 L ABG pCO2 33.8 L ABG pO2 65.1 L ABG O2 Saturation 93.8 L Ammonia < 8.7 L Urine Urobilinogen 2.0 H Discharge - Discharge Clinical Impression: Confusion Altered mental state Qualifiers: Altered mental status type: unspecified Qualified Code(s): R41.82 - Altered mental status, unspecified Condition: Stable Disposition: HOME, SELF-CARE Instructions: Altered Mental Status ([facility]) Additional Instructions: Follow up with your primary care doctor for further work up of your confusion. Return to an ER for fevers, chills, sweats or if worse in anyway. Tell your doctor you were in the ER and had a head CT, Chest Xray, Urine Analysis, and Blood Work which showed no acute process. Referrals: VIRGILIO EMERSON DO [Primary Care Provider] - Follow up as needed
[2019-07-15 01:04] LABS: APPEARANCE,URINE CLEAR; BILIRUBIN,URINE NEGATIVE (NEGATIVE); COLOR,URINE YELLOW; GLUCOSE, URINE NEGATIVE (NEGATIVE); KETONES,URINE NEGATIVE (NEGATIVE); LEUKOCYTE ESTERASE,URINE NEGATIVE (NEGATIVE); NITRITE,URINE NEGATIVE (NEGATIVE); PROTEIN,URINE NEGATIVE (NEGATIVE)
[2019-07-15 01:06] LABS: ARTERIAL BLOOD BASE EXCESS -0.6 mmol/L; ARTERIAL BLOOD H2CO3 1.02 mmol/L (1.05-1.35); ARTERIAL BLOOD HCO3 22.8 mmol/L (20-24); ARTERIAL BLOOD O2 SATURATION 93.8 % (94-98); ARTERIAL BLOOD PCO2 33.8 mmHg (35-45); ARTERIAL BLOOD PH 7.45 (7.35-7.45); ARTERIAL BLOOD PO2 65.1 mmHg (80-100); ARTERIAL BLOOD TOTAL CO2 23.8 mmol/L (23-27)
[2019-07-15 01:07] LABS: ARTERIAL BLOOD FIO2 ROOM AIR
[2019-07-15 01:48] LABS: URINE AMPHETAMINES SCREEN NEGATIVE; URINE BARBITURATES SCREEN NEGATIVE; URINE BENZODIAZEPINES SCREEN NEGATIVE; URINE COCAINE SCREEN NEGATIVE; URINE MARIJUANA (THC) SCREEN NEGATIVE; URINE METHADONE SCREEN NEGATIVE; URINE PHENCYCLIDINE SCREEN NEGATIVE
--- NOTE | 2019-07-15 02:15 | RADIOLOGY REPORT (SQ) ---
EXAM DESCRIPTION: CT HEAD WITHOUT IV CONTRAST COMPLETED DATE/TME: 07/14/2019 23:19 CLINICAL HISTORY: altered mental status COMPARISON: 05/20/2019 TECHNIQUE: Axial CT of the head obtained from the skull apex to the skull base without contrast. FINDINGS: No acute intracranial hemorrhage identified. No mass, mass effect, shift of the midline, abnormal extra-axial fluid collection or CT evidence of acute ischemic change identified. The ventricular system and sulcal spaces are mildly enlarged compatible with mild cerebral atrophy. Scattered areas of hypodensity throughout the supratentorial white matter are nonspecific and may be related to chronic small vessel ischemic change. The visualized paranasal sinuses and the mastoids are clear. No skull fracture identified. Visualized orbits and globes are unremarkable. Atherosclerotic calcification of the intracranial internal carotid arteries. IMPRESSION: 1. No acute intracranial abnormality by CT criteria. This exam was performed according to our departmental dose-optimization program, which includes automated exposure control, adjustment of the mA and/or kV according to patient size and/or use of iterative reconstruction technique.
[2019-07-15 04:31] VITALS: BP 140/64
== END 2019-07-15 04:32 | disposition home or self-care (01) ==
LOC: ER 18:41
DX: R41.0 Disorientation, unspecified (principal); R44.3 Hallucinations, unspecified; R53.1 Weakness; E78.00 Pure hypercholesterolemia, unspecified; I10 Essential (primary) hypertension; F17.200 Nicotine dependence, unspecified, uncomplicated; I25.2 Old myocardial infarction
CPT/HCPCS: 36415; 70450; 71046; 80053; 80307; 81001; 82140; 82803; 83735; 84443; 84484; 85025; 93005; 93010; 99285

== ENCOUNTER 2019-08-24 20:57 | Inpatient (IN) | payer MEDICARE, MEDICAID ==
[2019-08-24 21:40] LABS: ABSOLUTE LYMPHOCYTES (AUTO) 3.4 10^3/uL (0.5-4.7); ABSOLUTE MONOCYTES (AUTO) 1.2 10^3/uL (0.1-1.4); ABSOLUTE NEUT (AUTO) 6.2 10^3/uL (1.7-8.2); BASOPHILS % (AUTO) 0.4 % (0-2); EOSINOPHILS % (AUTO) 0.4 % (0-6); HEMATOCRIT 50.2 % (37.9-51.0); HEMOGLOBIN 16.9 g/dL (13.5-17.0); LYMPHOCYTES % (AUTO) 31.5 % (13-45); MEAN CORPUSCULAR HEMOGLOBIN 29.6 pg (27.0-33.4); MEAN CORPUSCULAR HGB CONC 33.7 g/dL (32.0-36.0); MEAN CORPUSCULAR VOLUME 88 fl (80-97); MONOCYTES % (AUTO) 10.7 % (3-13); PLATELET COUNT 196 10^3/uL (150-450); RED BLOOD COUNT 5.71 10^6/uL (4.35-5.55); TOTAL CELLS COUNTED % (AUTO) 100 %; WHITE BLOOD COUNT 10.9 10^3/uL (4.0-10.5)
[2019-08-24 21:49] LABS: INTERNATIONAL RATION (INR) 1.08; PROTHROMBIN TIME 14.1 SEC (11.4-15.4)
--- NOTE | 2019-08-24 22:03 | RADIOLOGY REPORT (SQ) ---
EXAM DESCRIPTION: XR CHEST 1 VIEW COMPLETED DATE/TME: 08/24/2019 21:16 CLINICAL HISTORY: 74 years, Male, dyspnea COMPARISON: Prior study from 07/14/2019 NUMBER OF VIEWS: 2 TECHNIQUE: 2 frontal views of the chest were obtained LIMITATIONS: None. FINDINGS: Cardiac and mediastinal contours are stable in appearance. Confluent right mid to lower lobe opacity is noted. Interstitial lines are also evident about the periphery of the right lung base. Left lung is overall clear. No pneumothorax or large pleural effusion. There is remote deformity involving the distal left clavicle. IMPRESSION: Confluent right mid to lower lung zone opacity, suspicious for pneumonia. Interstitial lines about the periphery of the right lung base likely indicates superimposed interstitial edema. copyright 2010 [email or web address] All Rights Reserved
[2019-08-24 22:08] LABS: ALBUMIN 4.2 g/dL (3.5-5.0); ALKALINE PHOSPHATASE 112 U/L (38-126); ANION GAP 13 (5-19); ASPARTATE AMINO TRANSFERASE 43 U/L (17-59); BILIRUBIN,DIRECT 0.4 mg/dL (0.0-0.4); BILIRUBIN,TOTAL 0.7 mg/dL (0.2-1.3); BLOOD UREA NITROGEN 15 mg/dL (7-20); CALCIUM 8.8 mg/dL (8.4-10.2); CARBON DIOXIDE 24 mmol/L (22-30); CHLORIDE 104 mmol/L (98-107); GLUCOSE 162 mg/dL (75-110); POTASSIUM 3.6 mmol/L (3.6-5.0); TOTAL PROTEIN 7.6 g/dL (6.3-8.2)
[2019-08-24] MEDS ORDERED: LEVOFLOXACIN 750 MG/D5W RTU 750 MG/150 ML RTUPB IV ONE (22:10)
[2019-08-24] MEDS ORDERED: NORMAL SALINE IV ONE (22:10)
--- NOTE | 2019-08-24 22:14 | ER Document Report ---
Entered by ABELARDO GHOSH SCRIBE 08/24/[id number] Acting as scribe for:SUSANA JONES IV, MD ED General - General Chief Complaint: Altered Mental Status Stated Complaint: AMS Time Seen by Provider: 08/24/19 21:04 Primary Care Provider: VIRGILIO EMERSON DO [Primary Care Provider] - Follow up as needed Mode of Arrival: Medic Information source: Emergency Med Personnel Notes: This 74 year old male patient with a history of asthma, HTN, HLD, and NC with stent placement who was brought in by EMS from home presents to the ED today with complaints of dyspnea and altered mental status per the patient's family. EMS reports that the family stated that the patient was seen for AMS recently and that he has been altered since. EMS reports that tonight, the patient's O2 sat was 89% initially and that his O2 sat increased to 95-100% after being pl aced in a nonrebreather mask and receiving an albuterol treatment. EMS notes that they administered 500 LR en route with a blood pressure in the 90s systolic and a lactate of 2.5. EMS states that the patient lives alone in a camper surrounded by his family who live in near by trailers. EMS reports that the family goes to check on him, but are poor historians. EMS states that the family couldn't find any of the patient's medications in the home and note that the patient does not smoke; however, EMS report that they found cigarettes and ananth all around the home. TRAVEL OUTSIDE OF THE [place] IN LAST 30 DAYS: No - Related Data Allergies/Adverse Reactions: No Known Allergies Allergy (Verified 07/14/19 19:09) Past Medical History - General Information source: Emergency Med Personnel, [facility] Records - Social History Smoking Status: Smoker,Current Status Unk Cigarette use (# per day): No Chew tobacco use (# tins/day): No Smoking Education Provided: No Lives with: Alone Family History: Reviewed & Not Pertinent Patient has suicidal ideation: No Patient has homicidal ideation: No - Past Medical History Cardiac Medical History: Reports: Hx Heart Attack, Hx Hypercholesterolemia, Hx Hypertension Musculoskeletal Medical History: Reports Hx Arthritis, Reports Hx Musculoskeletal Deformity, Reports Hx Musculoskeletal Trauma Psychiatric Medical History: Reports: Hx Anxiety, Hx Depression Traumatic Medical History: Reports: Hx Fractures Past Surgical History: Reports: Hx Appendectomy, Hx Cardiac Catheterization, Hx Coronary Stent - Also cleaned out the arteries, Hx Orthopedic Surgery - Broken Leg, Arm, and hip replacement - Immunizations Hx Diphtheria, Pertussis, Tetanus Vaccination: Yes Hx Pneumococcal Vaccination: 06/03/14 Review of Systems - Review of Systems Constitutional: No symptoms reported EENT: No symptoms reported Cardiovascular: See HPI, Dyspnea Respiratory: No symptoms reported Gastrointestinal: No symptoms reported Genitourinary: No symptoms reported Male Genitourinary: No symptoms reported Musculoskeletal: No symptoms reported Skin: No symptoms reported Hematologic/Lymphatic: No symptoms reported Neurological/Psychological: See HPI, Other - Altered mental status -: Yes All other systems reviewed and negative Physical Exam - Vital signs Vitals: Pulse Ox 75 L 08/24/19 21:02 - General General appearance: Alert, Other - Urine odor - HEENT Head: Normocephalic, Atraumatic Eyes: Normal Pupils: PERRL - Respiratory Respiratory status: Respiratory distress - on BiPAP Chest status: Nontender Breath sounds: Decreased air movement - Diminished breath sounds, Rhonchi - Scant rhonchi Chest palpation: Normal - Cardiovascular Rhythm: Regular Heart sounds: Normal auscultation Murmur: No - Abdominal Inspection: Normal Distension: No distension Bowel sounds: Normal Tenderness: Nontender - Abdomen soft Organomegaly: No organomegaly - Back Back: Normal, Nontender - Extremities General upper extremity: Normal inspection General lower extremity: Normal inspection - Neurological Neuro grossly intact: Yes - Psychological Associated symptoms: Normal affect, Normal mood - Skin Skin Temperature: Warm Skin Moisture: Dry Skin Color: Normal Course - Re-evaluation Re-evalutation: 08/24/19 22:27 Patient is resting comfortably and tolerating BiPAP well. O2 sats are 99%. Heart rate is 112. Blood pressures 138/82. - Vital Signs Vital signs: Temp Pulse Resp BP Pulse Ox 98.9 F 36 H 137/86 H 95 08/24/19 21:18 08/24/19 21:06 08/24/19 21:06 08/24/19 21:42 - Laboratory Result Diagrams: 08/24/19 21:22 08/24/19 21:22 Laboratory results interpreted by me: 08/24/19 08/24/19 08/24/19 21:22 21:22 21:22 WBC 10.9 H RBC 5.71 H RDW 15.0 H Glucose 162 H Lactic Acid 3.4 H - Diagnostic Test Radiology reviewed: Reports reviewed - EKG Interpretation by Me Additional EKG results interpreted by me: 08/24/19 22:28 EKG obtained on 08/24/2019 at 2118 hrs. was interpreted by this MD. Findings: Sinus tachycardia, rate 130, normal axis, left bundle branch block is present, ST segments are nonspecific. Of note left bundle branch block was also present on patient's EKG done on 07/14/2019. - Consults Dr. Kelly Time consulted: 22:23 - accepted pt for admission Reason for consultation: 08/24/19 22:29 pneumonia, sepsis Discharge - Discharge Clinical Impression: Pneumonia Qualifiers: Pneumonia type: due to unspecified organism Laterality: right Lung location: unspecified part of lung Qualified Code(s): J18.9 - Pneumonia, unspecified organism Sepsis Qualifiers: Sepsis type: sepsis due to unspecified organism Sepsis acute organ dysfunction status: unspecified Qualified Code(s): A41.9 - Sepsis, unspecified organism Condition: Good Disposition: ADMITTED INPATIENT Admitting Provider: Robin (Hospitalist) Unit Admitted: Telemetry Referrals: VIRGILIO EMERSON DO [Primary Care Provider] - Follow up as needed I personally performed the services described in the documentation, reviewed and edited the documentation which was dictated to the scribe in my presence, and it accurately records my words and actions.
[2019-08-24] MEDS ORDERED: ACETAMINOPHEN 325 MG TABLET PO PRN (22:23)
[2019-08-24] MEDS ORDERED: IPRATROPIUM/ALBUTEROL 0.5-2.5 MG/3 ML AMPUL NEB PRN (22:23)
[2019-08-24] MEDS ORDERED: HYDRALAZINE HCL INJ/PF 20 MG/1 ML SDV IV PRN (22:23)
[2019-08-24] MEDS ORDERED: GUAIFENESIN SYRP 200 MG/10 ML UDC PO PRN (22:23)
[2019-08-24] MEDS ORDERED: FLUTICASONE NASAL SPRAY 50 MCG/SPRY 120 SPRAY/16 GM NASL ONE (23:00)
[2019-08-24] MEDS: CHLORPHENIRAMINE MALEATE 4 MG TABLET PO SCH (23:14)
[2019-08-24] MEDS ORDERED: FLUTICASONE NASAL SPRAY 50 MCG/SPRY 120 SPRAY/16 GM ONE (23:29)
[2019-08-24] MEDS: DILTIAZEM HCL 60 MG TABLET PO SCH (23:53)
--- NOTE | 2019-08-25 00:41 | EKG REPORT ---
SEVERITY:- ABNORMAL ECG - A FIB WITH LBBB, CONSIDER IRREGULAR V TACH VENTRICULAR PREMATURE COMPLEX PROBABLE LEFT ATRIAL ABNORMALITY LEFT BUNDLE BRANCH BLOCK : Confirmed by: Tra Mayfield 25-Aug-2019 00:41:09
[2019-08-25] MEDS ORDERED: DILTIAZEM HCL 60 MG TABLET PO ONE (02:15)
[2019-08-25] MEDS ORDERED: MORPHINE SULFATE 10 MG/ML INJ ONE ×2 (02:25→20:56)
[2019-08-25] MEDS ORDERED: LORAZEPAM INJ 2 MG/1 ML VIAL ONE (02:25)
[2019-08-25] MEDS: IPRATROPIUM/ALBUTEROL 0.5-2.5 MG/3 ML AMPUL NEB SCH ×3 (02:27→14:25)
[2019-08-25] MEDS ORDERED: LORAZEPAM INJ 2 MG/1 ML VIAL IV ONE (02:45)
[2019-08-25] MEDS ORDERED: MORPHINE SULFATE 10 MG/ML INJ IV ONE ×2 (03:00→21:15)
[2019-08-25 03:38] LABS: ABSOLUTE LYMPHOCYTES (AUTO) 2.5 10^3/uL (0.5-4.7); ABSOLUTE MONOCYTES (AUTO) 1.2 10^3/uL (0.1-1.4); BASOPHILS % (AUTO) 0.3 % (0-2); EOSINOPHILS % (AUTO) 0.1 % (0-6); HEMATOCRIT 42.8 % (37.9-51.0); HEMOGLOBIN 14.9 g/dL (13.5-17.0); LYMPHOCYTES % (AUTO) 25.8 % (13-45); MEAN CORPUSCULAR HEMOGLOBIN 30.3 pg (27.0-33.4); MEAN CORPUSCULAR HGB CONC 34.9 g/dL (32.0-36.0); MEAN CORPUSCULAR VOLUME 87 fl (80-97); PLATELET COUNT 167 10^3/uL (150-450); RED BLOOD COUNT 4.93 10^6/uL (4.35-5.55); RED CELL DISTRIBUTION WIDTH 14.6 % (11.5-14.0); SEGMENTED NEUTROPHILS % (AUTO) 61.8 % (42-78); TOTAL CELLS COUNTED % (AUTO) 100 %; WHITE BLOOD COUNT 9.7 10^3/uL (4.0-10.5)
[2019-08-25 04:01] LABS: ANION GAP 11 (5-19); BLOOD UREA NITROGEN 17 mg/dL (7-20); CALCIUM 8.3 mg/dL (8.4-10.2); CARBON DIOXIDE 22 mmol/L (22-30); CHLORIDE 108 mmol/L (98-107); GLUCOSE 112 mg/dL (75-110); POTASSIUM 3.6 mmol/L (3.6-5.0)
--- NOTE | 2019-08-25 04:57 | PDOC H&P ---
History of Present Illness Admission Date/PCP: 08/24/19 22:48 VIRGILIO EMERSON DO Patient complains of: Shortness of breath History of Present Illness: MEGHAN MTZ JR is a 74 year old male who lives alone with a past medical history obtained by the record as he is in respiratory failure with agitation and deafness. Past medical history includes COPD with tobacco dependence, dyslipidemia, arthritis, anxiety with depression and deafness. He presents to the emergency department when found by family members with shortness of breath prompting call to EMS with oxygen saturations of 89% and hypotension with a systolic pressure of 90. Chest x-ray reveals right-sided infiltrate, he receives empiric antibiotics, several breathing treatments, IV saline challenge, BiPAP and referred to the hospitalist for admission. Patient has intermittent agitation becoming combative requiring sedation. Past Medical History Cardiac Medical History: Reports: Myocardial Infarction, Hyperlipidema, Hypertension Pulmonary Medical History: Reports: Bronchitis, Chronic Obstructive Pulmonary Disease (COPD) Neurological Medical History: Reports: Other - Deaf Musculoskeltal Medical History: Reports: Arthritis Psychiatric Medical History: Reports: Depression, General Anxiety Disorder, Tobacco Dependency Hematology: Denies: Anemia, Sickle Cell Disease Past Surgical History Past Surgical History: Reports: Appendectomy, Cardiac Catheterization, Coronary Stent - Also cleaned out the arteries, Orthopedic Surgery - Broken Leg, Arm, and hip replacement Social History Information Source: Patient, Emergency Med Personnel, [facility] Records Lives with: Alone Smoking Status: Current Every Day Smoker Frequency of Alcohol Use: None Hx Recreational Drug Use: No Hx Prescription Drug Abuse: No - Advance Directive Resuscitation Status: Full Code Family History Family History: Other - Unobtainable Parental Family History Reviewed: No - Unobtainable Children Family History Reviewed: No - Unobtainable Sibling(s) Family History Reviewed.: No - Unobtainable Medication/Allergy Home Medications: Clopidogrel Bisulfate [Plavix 75 mg Tablet] 75 mg PO DAILY 10/27/13 Isosorbide Dinitrate 30 mg PO DAILY 10/27/13 Lorazepam [Ativan 1 mg Tablet] 1 mg PO BID 10/27/13 Simvastatin 20 mg PO DAILY 10/27/13 Amlodipine Besylate/Benazepril [Amlodipine-Benazepril 10-20 mg] 1 cap PO DAILY 06/02/14 Aspirin [Aspirin 325 mg Tablet] 1 tab PO ASDIR PRN 12/23/14 Carvedilol [Coreg 25 mg Tablet] 1 tab PO Q12 06/02/14 Morphine Sulfate [Morphine Ir 15 mg Tablet] 15 mg PO BID 06/02/14 Cyanocobalamin (Vitamin B-12) [Vitamin B-12 1000 mcg Lozenge] 1,000 mcg PO DAILY #100 lozenge 06/03/14 Besifloxacin HCl [Besivance 0.6% Oph Susp 5 ml] 1 drop OP TID 10/13/14 Difluprednate [Durezol] 5 ml OP ASDIR PRN 10/13/14 Nepafenac [Ilevro] 1.7 ml OP ASDIR PRN 10/13/14 Diclofenac Sodium [Voltaren] 75 mg PO BIDP PRN #14 tablet. 11/06/14 Hydromorphone HCl [Dilaudid 2 Mg Tablet] 2 mg PO Q6HP PRN #14 tablet 11/06/14 Nitroglycerin 0.4 mg SL ASDIR PRN #20 tab.subl 08/04/15 Hydrocodone/Acetaminophen [[place] 5-325 mg Tablet] 1 tab PO Q6 #14 tablet 07/22/17 Docusate Sodium [Colace 100 mg Capsule] 100 mg PO ASDIR PRN #30 capsule 05/20/19 Morphine Sulfate [Morphine Ir 15 Mg Tablet] 15 mg PO TID PRN #12 tablet 05/20/19 Allergies/Adverse Reactions: No Known Allergies Allergy (Verified 07/14/19 19:09) Review of Systems ROS unobtainable: Due to mental status - Unobtainable Physical Exam Vital Signs: Temp Pulse Resp BP Pulse Ox 98.7 F 123 H 34 H 114/73 100 08/25/19 00:59 08/25/19 03:49 08/25/19 03:49 08/25/19 03:49 08/25/19 03:49 Intake & Output 08/23/19 08/24/19 08/25/19 11:59 11:59 11:59 Intake Total 2059 Balance 2059 Weight 98.7 kg General appearance: PRESENT: disheveled, severe distress, thin, well-developed, other - Appearing much older than stated age with temporal wasting and cachexia. ABSENT: cooperative, well-nourished Head exam: PRESENT: atraumatic, normocephalic Eye exam: PRESENT: conjunctiva pink, EOMI, PERRLA. ABSENT: scleral icterus Ear exam: PRESENT: normal external ear exam Mouth exam: PRESENT: moist, tongue midline Neck exam: ABSENT: carotid bruit, JVD, lymphadenopathy, thyromegaly Respiratory exam: PRESENT: accessory muscle use, crackles, prolonged expiratory phas, retraction, rhonchi, tachypnea. ABSENT: unlabored Cardiovascular exam: PRESENT: +S1, +S2, tachycardia. ABSENT: irregular rhythm Pulses: PRESENT: normal dorsalis pedis pul Vascular exam: PRESENT: normal capillary refill GI/Abdominal exam: PRESENT: normal bowel sounds, soft. ABSENT: distended, guarding, mass, organolmegaly, rebound, tenderness Rectal exam: PRESENT: deferred Extremities exam: PRESENT: full ROM. ABSENT: calf tenderness, clubbing, pedal edema Neurological exam: PRESENT: altered, oriented to person, CN II-XII grossly intact, other - Baseline deafness. ABSENT: oriented to place, oriented to time, oriented to situation, reflexes normal Psychiatric exam: PRESENT: agitated Skin exam: PRESENT: dry, intact, warm. ABSENT: cyanosis, rash Results Laboratory Results: 08/25/19 03:27 08/25/19 03:27 08/24/19 08/24/19 08/24/19 21:22 21:22 21:22 WBC 10.9 H RBC 5.71 H Hgb 16.9 Hct 50.2 MCV 88 MCH 29.6 MCHC 33.7 RDW 15.0 H Plt Count 196 Seg Neutrophils % 57.0 VBG pH Cancelled VBG pCO2 Cancelled VBG HCO3 Cancelled VBG Base Excess Cancelled Sodium 141.4 Potassium 3.6 Chloride 104 Carbon Dioxide 24 Anion Gap 13 BUN 15 Creatinine 0.79 Est GFR ( Amer) > 60 Glucose 162 H Lactic Acid Calcium 8.8 Total Bilirubin 0.7 AST 43 Alkaline Phosphatase 112 Total Protein 7.6 Albumin 4.2 08/24/19 08/25/19 08/25/19 21:22 01:15 03:27 WBC RBC Hgb Hct MCV MCH MCHC RDW Plt Count Seg Neutrophils % VBG pH VBG pCO2 VBG HCO3 VBG Base Excess Sodium Potassium Chloride Carbon Dioxide Anion Gap BUN Creatinine Est GFR ( Amer) Glucose Lactic Acid 3.4 H 2.3 H 1.8 Calcium Total Bilirubin AST Alkaline Phosphatase Total Protein Albumin 08/25/19 08/25/19 03:27 03:27 WBC 9.7 RBC 4.93 Hgb 14.9 Hct 42.8 MCV 87 MCH 30.3 MCHC 34.9 RDW 14.6 H Plt Count 167 Seg Neutrophils % 61.8 VBG pH VBG pCO2 VBG HCO3 VBG Base Excess Sodium 141.4 Potassium 3.6 Chloride 108 H Carbon Dioxide 22 Anion Gap 11 BUN 17 Creatinine 0.74 Est GFR ( Amer) > 60 Glucose 112 H Lactic Acid Calcium 8.3 L Total Bilirubin AST Alkaline Phosphatase Total Protein Albumin Impressions: Chest X-Ray 08/24/19 21:16 IMPRESSION: Confluent right mid to lower lung zone opacity, suspicious for pneumonia. Interstitial lines about the periphery of the right lung base likely indicates superimposed interstitial edema. copyright 2011 [employer]- All Rights Reserved Assessment and Plan - Diagnosis (1) Pneumonia Qualifiers: Pneumonia type: due to unspecified organism Laterality: right Lung l ocation: unspecified part of lung Qualified Code(s): J18.9 - Pneumonia, unspecified organism Is this a current diagnosis for this admission?: Yes Plan: Right lower lobe infiltrate, possibly aspiration, unable to obtain history. Levaquin initiated. Follow-up CBC and blood culture (2) Acute respiratory failure Is this a current diagnosis for this admission?: Yes Plan: ABG unsuccessful, BiPAP initiated, improved vitals with supplemental oxygen, albuterol, Atrovent, Flonase. (3) Tobacco abuse Is this a current diagnosis for this admission?: Yes Plan: Unable to perform tobacco cessation counseling, consider nicotine replacement options when cooperative (4) Debility Is this a current diagnosis for this admission?: Yes Plan: Physical therapy evaluation and (5) Sepsis Qualifiers: Sepsis type: sepsis due to unspecified organism Sepsis acute organ dysfunction status: unspecified Qualified Code(s): A41.9 - Sepsis, unspecified organism Is this a current diagnosis for this admission?: Yes Plan: Secondary to #1, IV fluid challenge, follow-up lactic acid and blood culture - Time Time Spent with patient: 25-34 minutes - Inpatient Certification Medical Necessity: Need Close Monitoring Due to Risk of Patient Decompensation
[2019-08-25] MEDS: CHLORPHENIRAMINE MALEATE 4 MG TABLET PO SCH ×3 (05:12→16:53)
[2019-08-25] MEDS: HEPARIN SOD (PORCINE) 5,000 UNIT/ML 1 ML VIAL SUBCUT SCH ×2 (05:12→14:19)
[2019-08-25] MEDS: DILTIAZEM HCL 60 MG TABLET PO SCH ×3 (05:12→17:04)
[2019-08-25] MEDS: FLUTICASONE NASAL SPRAY 50 MCG/SPRY 120 SPRAY/16 GM NASL SCH ×2 (11:54→22:20)
[2019-08-25] MEDS ORDERED: DILTIAZEM HCL INJ 25 MG/5 ML VIAL ONE (15:21)
[2019-08-25] MEDS ORDERED: DILTIAZEM HCL INJ 25 MG/5 ML VIAL IV ONE (15:30)
[2019-08-25] MEDS ORDERED: METOPROLOL TARTRATE PF/INJ 5 MG/5 ML SDV IV ONE ×2 (15:37→15:47)
--- NOTE | 2019-08-25 15:38 | EKG REPORT ---
SEVERITY:- ABNORMAL ECG - SINUS TACHYCARDIA WITH IRREGULAR RATE 113-179 FIRST DEGREE AV BLOCK LEFT BUNDLE BRANCH BLOCK : Confirmed by: Ana Perez MD 25-Aug-2019 15:37:53
[2019-08-25] MEDS: METOPROLOL TARTRATE PF/INJ 5 MG/5 ML SDV IV PRN (17:05)
[2019-08-25] MEDS ORDERED: NORMAL SALINE 1000 ML 1,000 ML IV PRN (19:08)
--- NOTE | 2019-08-25 19:10 | PDOC PROGRESS REPORT ---
Subjective Progress Note for:: 08/25/19 Subjective:: MEGHAN MTZ JR is a 74 year old male who lives alone with a past medical history obtained by the record as he is in respiratory failure with agitation and deafness. Past medical history includes COPD with tobacco dependence, dyslipidemia, arthritis, anxiety with depression and deafness who was admitted 08/24/19 with acute respiratory failure r/t PNA. Patient was seen on afternoon rounds. He was found to be resting, comfortably, on supplemental oxygen. Unfortunately, communication is severely limited due to his poor hearing. He also seems acutely agitated and confused today; requiring a sitter for safety and therefore he is unable to articulate/gesture/indicate any of his intentions or needs. Therefore, ROS is limited. He did appear to be comfortable and not noted to be in any acute distress at that time. Shortly later, nursing called to notify me that following his albuterol nebulizer treatment, the patient became tachypneic with a heart rate 160-180. It did appear that his heart rate was trending down following discontinuation of the neb. However, approximately 30 minutes later I was notified that he has remained sustained in the 140s. He did appear to be comfortable and not noted to be in any acute distress but would become highly agitated with any attempts at vital signs or EKG. Dr. Harley and myself were present for management of his tachycardia Reason For Visit: COPD EXACERBATION,ENCEPHALOPATHY PNEUMONIA Physical Exam Vital Signs: Temp Pulse Resp BP Pulse Ox 98.3 F 133 H 30 H 122/72 86 L 08/25/19 14:00 08/25/19 14:26 08/25/19 14:26 08/25/19 14:00 08/25/19 14:26 Intake & Output 08/24/19 08/25/19 08/26/19 06:59 06:59 06:59 Intake Total 2059 10 Balance 2059 10 Weight 98.7 kg General appearance: PRESENT: disheveled, mild distress, well-developed, well- nourished, other - Appearing much older than stated age with temporal wasting and cachexia Head exam: PRESENT: atraumatic, normocephalic Eye exam: PRESENT: conjunctiva pink, EOMI, PERRLA. ABSENT: scleral icterus Ear exam: PRESENT: normal external ear exam Mouth exam: PRESENT: moist, tongue midline Teeth exam: PRESENT: poor dentation Respiratory exam: PRESENT: accessory muscle use, clear to auscultation nitin, prolonged expiratory phas, rhonchi, tachypnea, other - Supplemental oxygen via nasal cannula. ABSENT: rales, wheezes Cardiovascular exam: PRESENT: irregular rhythm - LBBB, +S1, +S2, tachycardia - HR 140. ABSENT: diastolic murmur, rubs, systolic murmur Pulses: PRESENT: normal dorsalis pedis pul Vascular exam: PRESENT: normal capillary refill GI/Abdominal exam: PRESENT: normal bowel sounds, soft. ABSENT: distended, guarding, mass, organolmegaly, rebound, tenderness Rectal exam: PRESENT: deferred Extremities exam: PRESENT: full ROM. ABSENT: calf tenderness, clubbing, pedal edema Neurological exam: PRESENT: alert, awake, oriented to person, CN II-XII grossly intact, other - increased confusion today. ABSENT: motor sensory deficit Psychiatric exam: PRESENT: anxious, normal mood. ABSENT: homicidal ideation, suicidal ideation Skin exam: PRESENT: dry, intact, warm. ABSENT: cyanosis, rash Results Laboratory Results: 08/25/19 03:27 08/25/19 03:27 08/24/19 08/24/19 08/24/19 21:22 21:22 21:22 WBC 10.9 H RBC 5.71 H Hgb 16.9 Hct 50.2 MCV 88 MCH 29.6 MCHC 33.7 RDW 15.0 H Plt Count 196 Seg Neutrophils % 57.0 VBG pH Cancelled VBG pCO2 Cancelled VBG HCO3 Cancelled VBG Base Excess Cancelled Sodium 141.4 Potassium 3.6 Chloride 104 Carbon Dioxide 24 Anion Gap 13 BUN 15 Creatinine 0.79 Est GFR ( Amer) > 60 Glucose 162 H Lactic Acid Calcium 8.8 Total Bilirubin 0.7 AST 43 Alkaline Phosphatase 112 Total Protein 7.6 Albumin 4.2 08/24/19 08/25/19 08/25/19 21:22 01:15 03:27 WBC RBC Hgb Hct MCV MCH MCHC RDW Plt Count Seg Neutrophils % VBG pH VBG pCO2 VBG HCO3 VBG Base Excess Sodium Potassium Chloride Carbon Dioxide Anion Gap BUN Creatinine Est GFR ( Amer) Glucose Lactic Acid 3.4 H 2.3 H 1.8 Calcium Total Bilirubin AST Alkaline Phosphatase Total Protein Albumin 03/16/20 03/16/20 03:27 03:27 WBC 9.7 RBC 4.93 Hgb 14.9 Hct 42.8 MCV 87 MCH 30.3 MCHC 34.9 RDW 14.6 H Plt Count 167 Seg Neutrophils % 61.8 VBG pH VBG pCO2 VBG HCO3 VBG Base Excess Sodium 141.4 Potassium 3.6 Chloride 108 H Carbon Dioxide 22 Anion Gap 11 BUN 17 Creatinine 0.74 Est GFR ( Amer) > 60 Glucose 112 H Lactic Acid Calcium 8.3 L Total Bilirubin AST Alkaline Phosphatase Total Protein Albumin Impressions: Chest X-Ray 08/24/19 21:16 IMPRESSION: Confluent right mid to lower lung zone opacity, suspicious for pneumonia. Interstitial lines about the periphery of the right lung base likely indicates superimposed interstitial edema. copyright 2010 [employer]- All Rights Reserved Assessment and Plan - Diagnosis (1) Atrial fibrillation with RVR Is this a current diagnosis for this admission?: Yes Plan: Patient has left bundle branch block with underlying atrial fibrillation. Following albuterol treatment today was noted to be tachycardic with a heart rate 160s to 180; this slowly decreased without intervention but then remained sustained 120s to 140. He received a diltiazem 20 milligrams IV push without effect. This was followed by IV Lopressor 5 mg x 2 with improvement in his heart rate to 110-115. Unfortunately, this was short-lived and he again became tachycardic in the 140s. He is upgraded to IMCU on continuous cardiac telemetry. He will be put on a diltiazem drip We will anticoagulate with full dose Lovenox. The due to the patient's frailty and fall risk, he is not a candidate for long- term anticoagulant. (2) Left bundle branch block (LBBB) Is this a current diagnosis for this admission?: Yes Plan: with underlying afib. Management as above. (3) Pneumonia Qualifiers: Pneumonia type: due to unspecified organism Laterality: right Lung location: unspecified part of lung Qualified Code(s): J18.9 - Pneumonia, unspecified organism Is this a current diagnosis for this admission?: Yes Plan: Right lower lobe infiltrate, possibly aspiration, unable to obtain history. Blood cultures pending. Unable to obtain sputum cultures. Patient empirically placed on IV Levaquin. He is provided scheduled and as needed nebulizer treatments. We will support with supplemental oxygen and BiPAP to maintain saturations greater than 89%. Mucinex twice daily. Robitussin as needed. Encourage pulmonary toilet with incentive spirometer, flutter valve, and early ambulation. (4) Acute respiratory failure Is this a current diagnosis for this admission?: Yes Plan: Secondary to Pneumonia. Initial ABG unsuccessful. Will reattempt. Remaining management as above. (5) Debility Is this a current diagnosis for this admission?: Yes Plan: Physical therapy evaluation and discharge planning are consulted (6) Sepsis Qualifiers: Sepsis type: sepsis due to unspecified organism Sepsis acute organ dysfunction status: unspecified Qualified Code(s): A41.9 - Sepsis, unspecified organism Is this a current diagnosis for this admission?: Yes Plan: Blood cultures are pending. Lactic acidosis has resolved. We will continue gentle IV fluids. Antibiotics as above. (7) Tobacco abuse Is this a current diagnosis for this admission?: Yes Plan: Unable to perform tobacco cessation counseling, consider nicotine replacement options when cooperative - Time Time Spent with patient: 35 or more minutes Medications reviewed and adjusted accordingly: Yes
[2019-08-25 19:19] LABS: ARTERIAL BLOOD BASE EXCESS -0.9 mmol/L; ARTERIAL BLOOD H2CO3 0.82 mmol/L (1.05-1.35); ARTERIAL BLOOD HCO3 20.8 mmol/L (20-24); ARTERIAL BLOOD O2 SATURATION 92.1 % (94-98); ARTERIAL BLOOD PCO2 27.1 mmHg (35-45); ARTERIAL BLOOD PO2 55.9 mmHg (80-100); ARTERIAL BLOOD TOTAL CO2 21.6 mmol/L (23-27)
[2019-08-25 19:21] LABS: ARTERIAL BLOOD FIO2 3
[2019-08-25] MEDS: DILTIAZEM HCL/D5W 125 MG/125 ML RTUINJ IV PRN (20:19)
[2019-08-25] MEDS: LEVALBUTEROL HCL NEB 1.25 MG/3 ML AMPUL NEB SCH (20:22)
[2019-08-25] MEDS ORDERED: DIAZEPAM INJ 10 MG/2 ML DISP.SYRIN ONE (20:57)
[2019-08-25] MEDS ORDERED: POTASSI CL 20 MEQ/50 ML RIDER 40 MEQ/100 ML RTUPB IV SCH (21:00)
[2019-08-25] MEDS ORDERED: DIAZEPAM INJ 10 MG/2 ML DISP.SYRIN IV ONE (21:15)
[2019-08-25] MEDS: POTASSIUM CHLORIDE 20 MEQ/50 ML RTU IV SCH (21:34)
[2019-08-25] MEDS ORDERED: NORMAL SALINE 1000 ML 1,000 ML IV SCH (21:45)
[2019-08-25] MEDS ORDERED: ENOXAPARIN SODIUM INJ 100 MG/1 ML DISP.SYRIN SUBCUT SCH (22:00)
[2019-08-25] MEDS: LEVOFLOXACIN 750 MG/D5W RTU 750 MG/150 ML RTUPB IV SCH (22:12)
[2019-08-26] MEDS: LEVALBUTEROL HCL NEB 1.25 MG/3 ML AMPUL NEB SCH ×7 (00:28→23:55)
[2019-08-26] MEDS: POTASSIUM CHLORIDE 20 MEQ/50 ML RTU IV SCH (01:00)
[2019-08-26] MEDS: METOPROLOL TARTRATE PF/INJ 5 MG/5 ML SDV IV PRN (02:21)
[2019-08-26] MEDS: DILTIAZEM HCL/D5W 125 MG/125 ML RTUINJ IV PRN ×2 (02:51→16:18)
[2019-08-26 06:04] LABS: HEMATOCRIT 39.9 % (37.9-51.0); HEMOGLOBIN 13.5 g/dL (13.5-17.0); MEAN CORPUSCULAR HEMOGLOBIN 29.4 pg (27.0-33.4); MEAN CORPUSCULAR HGB CONC 33.9 g/dL (32.0-36.0); MEAN CORPUSCULAR VOLUME 87 fl (80-97); PLATELET COUNT 171 10^3/uL (150-450); RED BLOOD COUNT 4.59 10^6/uL (4.35-5.55); RED CELL DISTRIBUTION WIDTH 14.6 % (11.5-14.0); WHITE BLOOD COUNT 13.7 10^3/uL (4.0-10.5)
[2019-08-26 06:28] LABS: ANION GAP 9 (5-19); BLOOD UREA NITROGEN 25 mg/dL (7-20); CALCIUM 8.2 mg/dL (8.4-10.2); CARBON DIOXIDE 22 mmol/L (22-30); CHLORIDE 113 mmol/L (98-107); CHOLESTEROL 113.22 mg/dL (0-200); GLUCOSE 90 mg/dL (75-110); POTASSIUM 3.5 mmol/L (3.6-5.0); TRIGLYCERIDES 159 mg/dL (<150)
[2019-08-26 06:46] LABS: DIRECT LDL 72 mg/dL (<100)
[2019-08-26 06:48] LABS: VLDL CHOLESTEROL 31.8 mg/dL (10-31)
[2019-08-26] MEDS: ENOXAPARIN SODIUM INJ 60 MG/0.6 ML DISP.SYRIN SUBCUT SCH ×2 (09:39→21:49)
[2019-08-26] MEDS: FLUTICASONE NASAL SPRAY 50 MCG/SPRY 120 SPRAY/16 GM NASL SCH ×2 (09:41→22:52)
--- NOTE | 2019-08-26 11:47 | PDOC PROGRESS REPORT ---
Subjective Progress Note for:: 08/26/19 Reason For Visit: COPD EXACERBATION,ENCEPHALOPATHY PNEUMONIA 08/26/2019 Patient was admitted with [place] failure agitation, confusion, cough, pneumonia Physical Exam Vital Signs: Temp Pulse Resp BP Pulse Ox 98.8 F 110 H 30 H 118/63 92 08/26/19 07:35 08/26/19 11:00 08/26/19 08:38 08/26/19 11:00 08/26/19 08:38 Intake & Output 08/25/19 08/26/19 08/27/19 06:59 06:59 06:59 Intake Total 2059 345 35 Balance 2059 345 35 Weight 98.7 kg 56.6 kg General appearance: PRESENT: mild distress Respiratory exam: PRESENT: rhonchi Cardiovascular exam: PRESENT: RRR. 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 Psychiatric exam: PRESENT: flat affect Results Laboratory Results: 08/26/19 05:13 08/26/19 05:13 08/25/19 08/25/19 08/26/19 19:00 21:08 05:13 WBC 13.7 H RBC 4.59 Hgb 13.5 Hct 39.9 MCV 87 MCH 29.4 MCHC 33.9 RDW 14.6 H Plt Count 171 Carbonic Acid 0.82 L HCO3/H2CO3 Ratio 25:1 ABG pH 7.50 H ABG pCO2 27.1 L ABG pO2 55.9 L ABG HCO3 20.8 ABG O2 Saturation 92.1 L ABG Base Excess -0.9 FiO2 3 Sodium Potassium Chloride Carbon Dioxide Anion Gap BUN Creatinine Est GFR ( Amer) Glucose Calcium Magnesium 1.8 Triglycerides Cholesterol LDL Cholesterol Direct VLDL Cholesterol HDL Cholesterol TSH 08/26/19 08/26/19 05:13 05:13 WBC RBC Hgb Hct MCV MCH MCHC RDW Plt Count Carbonic Acid HCO3/H2CO3 Ratio ABG pH ABG pCO2 ABG pO2 ABG HCO3 ABG O2 Saturation ABG Base Excess FiO2 Sodium 143.7 Potassium 3.5 L Chloride 113 H Carbon Dioxide 22 Anion Gap 9 BUN 25 H Creatinine 0.90 Est GFR ( Amer) > 60 Glucose 90 Calcium 8.2 L Magnesium Triglycerides 159 H Cholesterol 113.22 LDL Cholesterol Direct 72 VLDL Cholesterol 31.8 H HDL Cholesterol 30 L TSH 2.48 Impressions: Chest X-Ray 08/24/19 21:16 IMPRESSION: Confluent right mid to lower lung zone opacity, suspicious for pneumonia. Interstitial lines about the periphery of the right lung base likely indicates superimposed interstitial edema. copyright 2010 [employer]- All Rights Reserved Assessment and Plan - Diagnosis (1) Acute respiratory failure Is this a current diagnosis for this admission?: Yes (2) Atrial fibrillation with RVR Is this a current diagnosis for this admission?: Yes (3) Pneumonia Qualifiers: Pneumonia type: due to unspecified organism Laterality: right Lung location: unspecified part of lung Qualified Code(s): J18.9 - Pneumonia, unspecified organism Is this a current diagnosis for this admission?: Yes (4) Sepsis Qualifiers: Sepsis type: sepsis due to unspecified organism Sepsis acute organ dysfunction status: unspecified Qualified Code(s): A41.9 - Sepsis, unspecified organism Is this a current diagnosis for this admission?: Yes - Plan Summary Summary: 08/26/2019 Originally admitted through the emergency room for respiratory failure, agitation. Evidently patient lives alone at home Temperature is 98.5. Earlier this morning heart rate was between 120 and 136 it is now stabilized to 110 Blood pressure however there is to be stable around 130/80 Patient is getting Lopressor 5 mg IV every 6 hours as needed sustained heart rate greater than 120 Patient is currently on a Cardizem drip, 10 mL's per hour Levaquin IV daily for his pneumonia, right lower lobe I am going to resume patient's Plavix as well as Imdur will hold on his Flomax and amlodipine at the present time Patient's labs reveal his white count to be up slightly to 13.7 Electrolytes are grossly normal - Time Time Spent with patient: 25-34 minutes
--- NOTE | 2019-08-26 18:00 | XCELERA REPORT ---
[address] [address] Transthoracic Echocardiogram Report Name: MEGHAN MTZ JR Age: 74 yrs Gender: Male : 1945 Patient Status: Inpatient Patient Location: [address] [place] [address] Study Date: 08/26/2019 10:30 AM Weight: 217 lb Procedure: A complete two-dimensional transthoracic echocardiogram was performed (2D, M-mode, spectral and color flow Doppler). The study was technically difficult with many images being suboptimal in quality. Reason For Study: cardiomegaly in CXR Ordering Physician: GOGO SANFORD Performed By: Bertha Horton Interpretation Summary LV EF is 35% Left ventricular systolic function is moderately reduced. Doppler measurements suggest reversible restrictive left ventricular relaxation, which is associated with grade III/IV or moderate diastolic dysfunction The left ventricle is grossly normal size. There is mild concentric left ventricular hypertrophy. There is mid to distal anterior wall moderate hypokinesis There is apical wall moderate hypokinesis The right ventricle is mildly dilated. The left atrium is mildly dilated. The right atrium is normal in size There is a mild to moderate amount of mitral regurgitation There is no mitral valve stenosis. There is a trace to mild amount of aortic regurgitation There is no aortic valve stenosis There is a mild amount of tricuspid regurgitation There is moderate pulmonary hypertension by echo Best estimated right ventricular systolic pressure is elevated at 50-60mmHg. The inferior vena cava appeared dilated and decreased < 50% with respiration (RAP 15-20 mmHg) There is no pericardial effusion. MMode/2D Measurements & Calculations RVDd: 3.5 cm LVIDd: 4.7 cm FS: 15.6 % Ao root diam: IVSd: 0.97 cm LVIDs: 4.0 cm EDV(Teich): 3.1 cm LVPWd: 1.0 cm 104.5 ml Ao root area: ESV(Teich): 70.2 ml7.6 cm2 EF(Teich): 32.8 % EDV(MOD-sp4): SV(MOD-sp4): 92.1 ml 18.6 ml ESV(MOD-sp4): 73.5 ml EF(MOD-sp4): 20.2 % Doppler Measurements & Calculations Ao V2 max: LV V1 max PG: PA V2 max: PI end-d silvino: 134.2 cm/sec 3.6 mmHg 106.8 cm/sec 166.4 cm/sec Ao max P.2 mmHg LV V1 max: PA max P.6 mmHg 94.9 cm/sec TR max silvino: 318.4 cm/sec TR max P.6 mmHg Left Ventricle The left ventricle is grossly normal size. There is mild concentric left ventricular hypertrophy. Left ventricular systolic function is moderately reduced. LV EF is 35%. Doppler measurements suggest reversible restrictive left ventricular relaxation, which is associated with grade III/IV or moderate diastolic dysfunction. There is moderate global hypokinesis of the left ventricle. There is mid to distal anterior wall moderate hypokinesis. There is apical wall moderate hypokinesis. Right Ventricle The right ventricle is mildly dilated. There is normal right ventricular wall thickness. Right ventricular function cannot be assessed due to poor image quality. Atria The right atrium is normal in size. The left atrium is mildly dilated. Interarterial septum not well visualized and not well dopplered. Cannot comment on ASD/PFO presence. Mitral Valve The mitral valve leaflets are sclerotic, but show no functional abnormalities. There is no mitral valve stenosis. There is a mild to moderate amount of mitral regurgitation. Aortic Valve The aortic valve opens well. There is no aortic valve stenosis. There is a trace to mild amount of aortic regurgitation. Tricuspid Valve The tricuspid valve is not well visualized, but is grossly normal. There is no tricuspid stenosis. There is a mild amount of tricuspid regurgitation. There is moderate pulmonary hypertension by echo. Best estimated right ventricular systolic pressure is elevated at 50-60mmHg. Pulmonic Valve The pulmonic valve is not well visualized. Great Vessels The aortic root is not well visualized but is probably normal size. The inferior vena cava appeared dilated and decreased < 50% with respiration (RAP 15-20 mmHg). Effusions There is no pericardial effusion. : GOGO SANFORD Shyamal
[2019-08-26] MEDS: METOPROLOL SUCCINATE 25 MG TAB.SR.24H PO SCH (18:02)
[2019-08-26] MEDS: LEVOFLOXACIN 750 MG/D5W RTU 750 MG/150 ML RTUPB IV SCH (22:52)
[2019-08-27] MEDS: DILTIAZEM HCL/D5W 125 MG/125 ML RTUINJ IV PRN ×3 (00:29→16:42)
[2019-08-27] MEDS: HALOPERIDOL LACTATE INJ 5 MG/1 ML VIAL IV PRN (01:05)
[2019-08-27] MEDS ORDERED: LORAZEPAM INJ 2 MG/1 ML VIAL ONE (03:01)
[2019-08-27] MEDS: METOPROLOL TARTRATE PF/INJ 5 MG/5 ML SDV IV PRN (03:08)
[2019-08-27 03:20] LABS: APPEARANCE,URINE CLEAR; BILIRUBIN,URINE NEGATIVE (NEGATIVE); COLOR,URINE YELLOW; GLUCOSE, URINE NEGATIVE (NEGATIVE); KETONES,URINE TRACE mg/dL (NEGATIVE); LEUKOCYTE ESTERASE,URINE SMALL (NEGATIVE); NITRITE,URINE NEGATIVE (NEGATIVE); PROTEIN,URINE 30 mg/dL (NEGATIVE); URINE SPECIFIC GRAVITY 1.019
--- NOTE | 2019-08-27 04:14 | Progress Note ---
Provider Note Provider Note: Critical care note for 08/27/2019 Critical care start time: 00:50 Critical care issue: Agitation I was called by the patient's nurse due to his severe agitation and anxiety. Patient appeared to be very anxious and agitated with little or no following of commands and inability to maintain his position on his bed. Chest was grossly clear to limited exam. Heart showed a mild tachycardia with an irregular rate and rhythm again on brief exam. Patient was initially treated with Haldol 5 mg IV x1. His response to this treatment was less than adequate upon reevaluation. Patient was subsequently treated with Ativan 1 mg IV every 4 hours as needed for anxiety or agitation. However, after several re-evaluations, he persisted in being agitated, combative and poorly responsive to redirection. Patient was subsequently placed in soft restraints for his own protection. Critical care end time: 04:10 Total critical care time: 17 minutes
[2019-08-27] MEDS: LEVALBUTEROL HCL NEB 1.25 MG/3 ML AMPUL NEB SCH ×5 (04:24→20:33)
[2019-08-27 05:07] LABS: HEMATOCRIT 41.5 % (37.9-51.0); HEMOGLOBIN 14.2 g/dL (13.5-17.0); MEAN CORPUSCULAR HEMOGLOBIN 29.7 pg (27.0-33.4); MEAN CORPUSCULAR HGB CONC 34.3 g/dL (32.0-36.0); MEAN CORPUSCULAR VOLUME 87 fl (80-97); PLATELET COUNT 178 10^3/uL (150-450); RED BLOOD COUNT 4.78 10^6/uL (4.35-5.55); RED CELL DISTRIBUTION WIDTH 14.9 % (11.5-14.0); WHITE BLOOD COUNT 12.3 10^3/uL (4.0-10.5)
[2019-08-27] MEDS: METOPROLOL SUCCINATE 25 MG TAB.SR.24H PO SCH ×2 (06:05→17:19)
[2019-08-27] MEDS: FLUTICASONE NASAL SPRAY 50 MCG/SPRY 120 SPRAY/16 GM NASL SCH ×2 (09:17→21:56)
[2019-08-27] MEDS: ENOXAPARIN SODIUM INJ 60 MG/0.6 ML DISP.SYRIN SUBCUT SCH ×2 (09:18→22:00)
[2019-08-27] MEDS ORDERED: INFLUENZA QUAD (6MOS+) 2019-20 VAC 0.5 ML SYR IM ONE (10:50)
--- NOTE | 2019-08-27 16:12 | PDOC PROGRESS REPORT ---
Subjective Progress Note for:: 08/27/19 Reason For Visit: COPD EXACERBATION,ENCEPHALOPATHY PNEUMONIA 08/27/2019 Patient was originally admitted for COPD exacerbation, respiratory failure agitation, confusion, cough, pneumonia Physical Exam Vital Signs: Temp Pulse Resp BP Pulse Ox 97.8 F 123 H 24 H 105/75 18 L 08/27/19 12:04 08/27/19 15:17 08/27/19 13:06 08/27/19 15:17 08/27/19 13:06 Intake & Output 08/26/19 08/27/19 08/28/19 06:59 06:59 06:59 Intake Total 345 651 119 Balance 345 651 119 Weight 56.6 kg 57.3 kg General appearance: PRESENT: no acute distress Respiratory exam: PRESENT: rhonchi - Coarse rhonchi scattered Cardiovascular exam: PRESENT: tachycardia Neurological exam: PRESENT: alert, awake Psychiatric exam: PRESENT: anxious Results Laboratory Results: 08/27/19 04:40 08/26/19 05:13 08/27/19 08/27/19 03:05 04:40 WBC 12.3 H RBC 4.78 Hgb 14.2 Hct 41.5 MCV 87 MCH 29.7 MCHC 34.3 RDW 14.9 H Plt Count 178 Urine Color YELLOW Urine Appearance CLEAR Urine pH 6.0 Ur Specific [place] 1.019 Urine Protein 30 H Urine Glucose (UA) NEGATIVE Urine Ketones TRACE H Urine Blood SMALL H Urine Nitrite NEGATIVE Ur Leukocyte Esterase SMALL H Urine WBC (Auto) 10 Urine RBC (Auto) 1 Impressions: Chest X-Ray 08/24/19 21:16 IMPRESSION: Confluent right mid to lower lung zone opacity, suspicious for pneumonia. Interstitial lines about the periphery of the right lung base likely indicates superimposed interstitial edema. copyright 2010 [employer]- All Rights Reserved Assessment and Plan - Diagnosis (1) Acute respiratory failure Is this a current diagnosis for this admission?: Yes (2) Atrial fibrillation with RVR Is this a current diagnosis for this admission?: Yes (3) Pneumonia Qualifiers: Pneumonia type: due to unspecified organism Laterality: right Lung location: unspecified part of lung Qualified Code(s): J18.9 - Pneumonia, unspecified organism Is this a current diagnosis for this admission?: Yes (4) Sepsis Qualifiers: Sepsis type: sepsis due to unspecified organism Sepsis acute organ dysfunction status: unspecified Qualified Code(s): A41.9 - Sepsis, unspecified organism Is this a current diagnosis for this admission?: Yes (5) Agitation Is this a current diagnosis for this admission?: Yes (6) Altered mental status Is this a current diagnosis for this admission?: Yes - Plan Summary Summary: 08/26/2019 Originally admitted through the emergency room for respiratory failure, agitation. Evidently patient lives alone at home Temperature is 98.5. Earlier this morning heart rate was between 120 and 136 it is now stabilized to 110 Blood pressure however there is to be stable around 130/80 Patient is getting Lopressor 5 mg IV every 6 hours as needed sustained heart rate greater than 120 Patient is currently on a Cardizem drip, 10 mL's per hour Levaquin IV daily for his pneumonia, right lower lobe I am going to resume patient's Plavix as well as Imdur will hold on his Flomax and amlodipine at the present time Patient's labs reveal his white count to be up slightly to 13.7 Electrolytes are grossly normal 08/27/2019 The bark fitter was called last night for patient being agitated. Medication did not seem to help and therefore he was put in soft restraints This morning the patient is no longer agitated he is out of restraints. Patient is reportedly deaf however he heard me speaking to him and answered questions as he did the nurse Temperature is 98.4 he is still tachycardic 111-123 blood pressure stable 133/88 I am going to increase his Toprol to 50 mg every 12 hours White count is coming down on admission 13.7 slightly lower today 12.3, potassium is stable 3.5 Blood cultures negative x48 hours, echocardiogram is negative for vegetation or sepsis ejection fracture is 35% Patient is on Levaquin IV Chest x-ray on admission approximately 4 days ago patient for pneumonia in the right lower lobe possible interstitial edema. Going to repeat a portable chest x-ray today - Time Time Spent with patient: 25-34 minutes
--- NOTE | 2019-08-27 17:01 | RADIOLOGY REPORT (SQ) ---
EXAM DESCRIPTION: CHEST SINGLE VIEW COMPLETED DATE/TIME: 08/27/2019 4:43 pm REASON FOR STUDY: Pneumonia COMPARISON: 08/24/2019, 07/14/2019 chest films EXAM PARAMETERS: NUMBER OF VIEWS: One view. TECHNIQUE: Single frontal radiographic view of the chest acquired. RADIATION DOSE: NA LIMITATIONS: None. FINDINGS: LUNGS AND PLEURA: Persistent dense consolidation left lower lobe worrisome pneumonia. Fluffy alveolar infiltrate right lower lobe with few Ezra lines right lateral costophrenic sulcus w orrisome for superimposed congestive failure MEDIASTINUM AND HILAR STRUCTURES: No masses. Contour normal. HEART AND VASCULAR STRUCTURES: No cardiomegaly BONES: No acute findings. HARDWARE: None in the chest. OTHER: No other significant finding. IMPRESSION: Persistent dense left lower lobe consolidation worrisome for pneumonia Alveolar and interstitial infiltrates right lung worrisome for pulmonary edema TECHNICAL DOCUMENTATION: JOB ID: [id number] 2010 [employer]- All Rights Reserved Reading location - IP/workstation name: [id number]
[2019-08-27] MEDS: LORAZEPAM INJ 2 MG/1 ML VIAL IV PRN (19:56)
[2019-08-27] MEDS: LEVOFLOXACIN 750 MG/D5W RTU 750 MG/150 ML RTUPB IV SCH (22:01)
[2019-08-28] MEDS: LEVALBUTEROL HCL NEB 1.25 MG/3 ML AMPUL NEB SCH ×6 (00:35→20:37)
[2019-08-28] MEDS: LORAZEPAM INJ 2 MG/1 ML VIAL IV PRN ×4 (00:52→23:59)
[2019-08-28] MEDS: DILTIAZEM HCL/D5W 125 MG/125 ML RTUINJ IV PRN ×3 (01:41→20:46)
[2019-08-28] MEDS: METOPROLOL SUCCINATE 25 MG TAB.SR.24H PO SCH ×2 (05:30→18:04)
[2019-08-28] MEDS ORDERED: DIGOXIN INJ 0.5 MG/2 ML AMPULE IV ONE (10:30)
--- NOTE | 2019-08-28 12:26 | PDOC PROGRESS REPORT ---
Subjective Progress Note for:: 08/28/19 Reason For Visit: COPD EXACERBATION,ENCEPHALOPATHY PNEUMONIA 08/28/2019 COPD exacerbation respiratory failure agitation confusion cough and pneumonia Physical Exam Vital Signs: Temp Pulse Resp BP Pulse Ox 97.9 F 98 28 H 88/55 L 98 08/27/19 18:00 08/28/19 08:31 08/28/19 08:31 08/28/19 08:00 08/28/19 08:31 Intake & Output 08/27/19 08/28/19 08/29/19 06:59 06:59 06:59 Intake Total 651 519 125 Output Total 25 Balance 651 494 125 Weight 57.3 kg 53.9 kg General appearance: PRESENT: mild distress, other - Secondary to agitation and respiratory distress Respiratory exam: PRESENT: rhonchi - Coarse rhonchi scattered Cardiovascular exam: PRESENT: RRR. ABSENT: diastolic murmur, rubs, systolic murmur Neurological exam: PRESENT: altered, other - Patient is reportedly hard of hearing although he does answer questions sometimes. Unsure as to what patient's mentation is baseline Psychiatric exam: PRESENT: agitated, anxious Results Laboratory Results: 08/27/19 04:40 08/26/19 05:13 Impressions: Chest X-Ray 08/27/19 00:00 IMPRESSION: Persistent dense left lower lobe consolidation worrisome for pneumonia Alveolar and interstitial infiltrates right lung worrisome for pulmonary edema Assessment and Plan - Diagnosis (1) Acute respiratory failure Is this a current diagnosis for this admission?: Yes (2) Atrial fibrillation with RVR Is this a current diagnosis for this admission?: Yes (3) Pneumonia Qualifiers: Pneumonia type: due to unspecified organism Laterality: right Lung location: unspecified part of lung Qualified Code(s): J18.9 - Pneumonia, unspecified organism Is this a current diagnosis for this admission?: Yes (4) Sepsis Qualifiers: Sepsis type: sepsis due to unspecified organism Sepsis acute organ dysfunction status: unspecified Qualified Code(s): A41.9 - Sepsis, unspecified organism Is this a current diagnosis for this admission?: Yes (5) Agitation Is this a current diagnosis for this admission?: Yes (6) Altered mental status Is this a current diagnosis for this admission?: Yes - Plan Summary Summary: 08/26/2019 Originally admitted through the emergency room for respiratory failure, agitation. Evidently patient lives alone at home Temperature is 98.5. Earlier this morning heart rate was between 120 and 136 it is now stabilized to 110 Blood pressure however there is to be stable around 130/80 Patient is getting Lopressor 5 mg IV every 6 hours as needed sustained heart rate greater than 120 Patient is currently on a Cardizem drip, 10 mL's per hour Levaquin IV daily for his pneumonia, right lower lobe I am going to resume patient's Plavix as well as Imdur will hold on his Flomax and amlodipine at the present time Patient's labs reveal his white count to be up slightly to 13.7 Electrolytes are grossly normal 08/27/2019 The conservation policy analyst was called last night for patient being agitated. Medication did not seem to help and therefore he was put in soft restraints This morning the patient is no longer agitated he is out of restraints. Patient is reportedly deaf however he heard me speaking to him and answered questions as he did the nurse Temperature is 98.4 he is still tachycardic 111-123 blood pressure stable 133/88 I am going to increase his Toprol to 50 mg every 12 hours White count is coming down on admission 13.7 slightly lower today 12.3, potassium is stable 3.5 Blood cultures negative x48 hours, echocardiogram is negative for vegetation or sepsis ejection fracture is 35% Patient is on Levaquin IV Chest x-ray on admission approximately 4 days ago patient for pneumonia in the right lower lobe possible interstitial edema. Going to repeat a portable chest x-ray today 08/28/2019 Patient does not appear to be running a fever. His pulse rate continues to fluctuate between the mid 90s to 120. Blood pressure usually runs around 130/70 Respirations between 16 and 28. Oxygen saturation can be in the low 80s or the high 90s Patient's vital signs are very labile, hard to control Patient's chest x-ray yesterday showed continued left lower lobe pneumonia and in the right lung field possible edema. I agree when comparing films back from July. I am going to repeat labs today white count 2 days ago was just slightly high 12.3 I am going to add IV Lasix to his medications today, also add a second antibiotic. Also a scheduled dosing of Solu-Medrol. I have consulted cardiology for his sustained tachycardia and poor response to Cardizem - Time Time Spent with patient: 25-34 minutes
[2019-08-28] MEDS ORDERED: FUROSEMIDE INJ/PF 40 MG/4 ML SDV IV ONE (13:00)
[2019-08-28] MEDS ORDERED: METHYLPREDNISOLONE INJ 125 MG/2 ML SDV IV ONE (13:00)
[2019-08-28 13:14] LABS: ABSOLUTE BASOPHILS # (AUTO) 0.1 10^3/uL (0.0-0.2); ABSOLUTE LYMPHOCYTES (AUTO) 1.5 10^3/uL (0.5-4.7); ABSOLUTE MONOCYTES (AUTO) 0.9 10^3/uL (0.1-1.4); ABSOLUTE NEUT (AUTO) 8.9 10^3/uL (1.7-8.2); BASOPHILS % (AUTO) 0.8 % (0-2); HEMATOCRIT 43.9 % (37.9-51.0); HEMOGLOBIN 14.7 g/dL (13.5-17.0); LYMPHOCYTES % (AUTO) 12.9 % (13-45); MEAN CORPUSCULAR HEMOGLOBIN 29.4 pg (27.0-33.4); MEAN CORPUSCULAR HGB CONC 33.4 g/dL (32.0-36.0); MEAN CORPUSCULAR VOLUME 88 fl (80-97); MONOCYTES % (AUTO) 7.6 % (3-13); PLATELET COUNT 222 10^3/uL (150-450); RED BLOOD COUNT 4.99 10^6/uL (4.35-5.55); RED CELL DISTRIBUTION WIDTH 15.1 % (11.5-14.0); SEGMENTED NEUTROPHILS % (AUTO) 78.7 % (42-78); TOTAL CELLS COUNTED % (AUTO) 100 %; WHITE BLOOD COUNT 11.3 10^3/uL (4.0-10.5)
[2019-08-28 13:35] LABS: ANION GAP 5 (5-19); BLOOD UREA NITROGEN 21 mg/dL (7-20); CALCIUM 8.7 mg/dL (8.4-10.2); CARBON DIOXIDE 27 mmol/L (22-30); CHLORIDE 116 mmol/L (98-107); GLUCOSE 106 mg/dL (75-110)
[2019-08-28] MEDS: FLUTICASONE NASAL SPRAY 50 MCG/SPRY 120 SPRAY/16 GM NASL SCH ×2 (15:24→21:29)
[2019-08-28] MEDS ORDERED: METHYLPREDNISOLONE INJ 125 MG/2 ML SDV ONE (15:27)
[2019-08-28] MEDS ORDERED: FUROSEMIDE INJ/PF 40 MG/4 ML SDV ONE (15:33)
[2019-08-28] MEDS: CEFTRIAXONE 1 GM/D5W RTU 1 GM/50 ML RTUPB IV SCH ×2 (15:37→22:55)
--- NOTE | 2019-08-28 15:55 | EKG REPORT ---
SEVERITY:- ABNORMAL ECG - ATRIAL FIBRILLATION, V-RATE 78-140 VENTRICULAR PREMATURE COMPLEX LEFT BUNDLE BRANCH BLOCK : Confirmed by: Ana Perez MD 28-Aug-2019 15:54:45
[2019-08-28] MEDS: ENOXAPARIN SODIUM INJ 60 MG/0.6 ML DISP.SYRIN SUBCUT SCH ×2 (15:56→21:19)
[2019-08-28] MEDS: METHYLPREDNISOLONE INJ 40 MG/1 ML SDV IV SCH (21:19)
[2019-08-28] MEDS: LEVOFLOXACIN 750 MG/D5W RTU 750 MG/150 ML RTUPB IV SCH (21:19)
[2019-08-28] MEDS: FUROSEMIDE INJ/PF 20 MG/2 ML SDV IV SCH (21:19)
[2019-08-29] MEDS: LEVALBUTEROL HCL NEB 1.25 MG/3 ML AMPUL NEB SCH ×7 (04:16→23:55)
[2019-08-29 05:32] LABS: HEMATOCRIT 44.1 % (37.9-51.0); MEAN CORPUSCULAR HEMOGLOBIN 29.8 pg (27.0-33.4); MEAN CORPUSCULAR HGB CONC 34.1 g/dL (32.0-36.0); MEAN CORPUSCULAR VOLUME 87 fl (80-97); PLATELET COUNT 221 10^3/uL (150-450); RED BLOOD COUNT 5.04 10^6/uL (4.35-5.55); RED CELL DISTRIBUTION WIDTH 14.9 % (11.5-14.0); WHITE BLOOD COUNT 10.1 10^3/uL (4.0-10.5)
[2019-08-29 05:49] LABS: APPEARANCE,URINE CLEAR; BILIRUBIN,URINE NEGATIVE (NEGATIVE); COLOR,URINE YELLOW; GLUCOSE, URINE NEGATIVE (NEGATIVE); KETONES,URINE TRACE mg/dL (NEGATIVE); PROTEIN,URINE NEGATIVE (NEGATIVE); URINE SPECIFIC GRAVITY 1.013; UROBILINOGEN,URINE NEGATIVE mg/dL (<2.0)
[2019-08-29] MEDS: METOPROLOL SUCCINATE 25 MG TAB.SR.24H PO SCH ×2 (06:13→19:20)
[2019-08-29] MEDS: DILTIAZEM HCL/D5W 125 MG/125 ML RTUINJ IV PRN (06:14)
--- NOTE | 2019-08-29 10:59 | PDOC PROGRESS REPORT ---
Subjective Progress Note for:: 08/29/19 Reason For Visit: COPD EXACERBATION,ENCEPHALOPATHY PNEUMONIA 08/29/2019 Patient admitted for respiratory failure secondary to COPD exacerbation, agitation, confusion, cough, pneumonia Physical Exam Vital Signs: Temp Pulse Resp BP Pulse Ox 97.9 F 69 20 124/73 99 08/29/19 08:00 08/29/19 08:57 08/29/19 08:57 08/29/19 08:32 08/29/19 08:57 Intake & Output 08/28/19 08/29/19 08/30/19 06:59 06:59 06:59 Intake Total 519 622 Output Total 25 200 Balance 494 422 Weight 53.9 kg 53.9 kg General appearance: PRESENT: no acute distress Respiratory exam: PRESENT: decreased breath sounds Cardiovascular exam: PRESENT: RRR. ABSENT: diastolic murmur, rubs, systolic murmur Neurological exam: PRESENT: altered Psychiatric exam: PRESENT: anxious Results Laboratory Results: 08/29/19 04:51 08/28/19 12:47 08/28/19 08/28/19 08/29/19 12:47 12:47 04:51 WBC 11.3 H 10.1 RBC 4.99 5.04 Hgb 14.7 15.0 Hct 43.9 44.1 MCV 88 87 MCH 29.4 29.8 MCHC 33.4 34.1 RDW 15.1 H 14.9 H Plt Count 222 221 Seg Neutrophils % 78.7 H Sodium 148.2 H Potassium 4.0 Chloride 116 H Carbon Dioxide 27 Anion Gap 5 BUN 21 H Creatinine 0.82 Est GFR ( Amer) > 60 Glucose 106 Calcium 8.7 Urine Color Urine Appearance Urine pH Ur Specific [place] Urine Protein Urine Glucose (UA) Urine Ketones Urine Blood Urine RBC (Auto) 08/29/19 04:58 WBC RBC Hgb Hct MCV MCH MCHC RDW Plt Count Seg Neutrophils % Sodium Potassium Chloride Carbon Dioxide Anion Gap BUN Creatinine Est GFR ( Amer) Glucose Calcium Urine Color YELLOW Urine Appearance CLEAR Urine pH 5.0 Ur Specific [place] 1.013 Urine Protein NEGATIVE Urine Glucose (UA) NEGATIVE Urine Ketones TRACE H Urine Blood NEGATIVE Urine RBC (Auto) 1 08/28/19 12:47 NT-Pro-B Natriuret Pep 6890 H Impressions: Chest X-Ray 08/27/19 00:00 IMPRESSION: Persistent dense left lower lobe consolidation worrisome for pneumonia Alveolar and interstitial infiltrates right lung worrisome for pulmonary edema Assessment and Plan - Diagnosis (1) Acute respiratory failure Is this a current diagnosis for this admission?: Yes (2) Atrial fibrillation with RVR Is this a current diagnosis for this admission?: Yes (3) Pneumonia Qualifiers: Pneumonia type: due to unspecified organism Laterality: right Lung location: unspecified part of lung Qualified Code(s): J18.9 - Pneumonia, unspecified organism Is this a current diagnosis for this admission?: Yes (4) Sepsis Qualifiers: Sepsis type: sepsis due to unspecified organism Sepsis acute organ dysfunction status: unspecified Qualified Code(s): A41.9 - Sepsis, unspecified organism Is this a current diagnosis for this admission?: Yes (5) Agitation Is this a current diagnosis for this admission?: Yes (6) Altered mental status Is this a current diagnosis for this admission?: Yes - Plan Summary Summary: 08/26/2019 Originally admitted through the emergency room for respiratory failure, agitation. Evidently patient lives alone at home Temperature is 98.5. 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 Medication did not seem to help and therefore he was put in soft restraints This morning the patient is no longer agitated he is out of restraints. Patient is reportedly deaf however he heard me speaking to him and answered questions as he did the nurse Temperature is 98.4 he is still tachycardic 111-123 blood pressure stable 133/88 I am going to increase his Toprol to 50 mg every 12 hours White count is coming down on admission 13.7 slightly lower today 12.3, potassium is stable 3.5 Blood cultures negative x48 hours, echocardiogram is negative for vegetation or sepsis ejection fracture is 35% Patient is on Levaquin IV Chest x-ray on admission approximately 4 days ago patient for pneumonia in the right lower lobe possible interstitial edema. Going to repeat a portable chest x-ray today 08/28/2019 Patient does not appear to be running a fever. His pulse rate continues to fluctuate between the mid 90s to 120. Blood pressure usually runs around 130/70 Respirations between 16 and 28. Oxygen saturation can be in the low 80s or the high 90s Patient's vital signs are very labile, hard to control Patient's chest x-ray yesterday showed continued left lower lobe pneumonia and in the right lung field possible edema. I agree when comparing films back from July. I am going to repeat labs today white count 2 days ago was just slightly high 12.3 I am going to add IV Lasix to his medications today, also add a second antibiotic. Also a scheduled dosing of Solu-Medrol. I have consulted cardiology for his sustained tachycardia and poor response to Cardizem 08/29/2019 Morning sometime around 2:00 in the morning his heart rate went from 117 down to 74. It stayed in that range for about 2 hours and then for about 3 hours went back up into the low 100s, and now for the last 3 hours it appears to be about 70 Patient has maintained a good normal blood pressure this whole time throughout this morning 124/73 Oxygen saturation about 99% I am going to have them cut down the flow to 3 L Count remains normal 10,100 Chemistry appear grossly normal, BNP was elevated yesterday to 6890 today's is pending Patient has been seen by cardiology who is adjusting medications and making recommendations Continue IV Lasix continue antibiotics as well as Solu-Medrol Patient has had no recent agitation - Time Time Spent with patient: 25-34 minutes
[2019-08-29] MEDS: FLUTICASONE NASAL SPRAY 50 MCG/SPRY 120 SPRAY/16 GM NASL SCH ×2 (13:33→22:32)
[2019-08-29] MEDS: FUROSEMIDE INJ/PF 20 MG/2 ML SDV IV SCH ×2 (13:40→22:22)
[2019-08-29] MEDS: ENOXAPARIN SODIUM INJ 60 MG/0.6 ML DISP.SYRIN SUBCUT SCH ×2 (13:42→22:23)
[2019-08-29] MEDS: CEFTRIAXONE 1 GM/D5W RTU 1 GM/50 ML RTUPB IV SCH ×2 (13:45→22:19)
[2019-08-29] MEDS: METHYLPREDNISOLONE INJ 40 MG/1 ML SDV IV SCH ×2 (13:50→22:27)
[2019-08-29] MEDS ORDERED: THIAMINE HCL INJ 200 MG/2 ML VIAL IV ONE (15:15)
[2019-08-29 16:08] LABS: FREE T3 2.91 pg/mL (2.77-5.27); FREE T4 (FREE THYROXINE) 1.97 ng/dL (0.78-2.19)
[2019-08-29] MEDS: LORAZEPAM INJ 2 MG/1 ML VIAL IV PRN (16:19)
[2019-08-29 16:22] LABS: THYROID STIMULATING HORMONE 1.31 uIU/mL (0.47-4.68)
[2019-08-29] MEDS ORDERED: DIGOXIN INJ 0.5 MG/2 ML AMPULE ONE (20:47)
[2019-08-29] MEDS ORDERED: DIGOXIN INJ 0.5 MG/2 ML AMPULE IV ONE (21:15)
--- NOTE | 2019-08-29 21:43 | Progress Note ---
Provider Note Provider Note: CARDIOLOGY progress NOTE by Dr. Ana Reyes on 08/29/2019. SUBJECTIVE: The patient last night was very agitated and this could not be controlled medication and hence he is on soft restraints. At present he appears to be calm. The patient is nonverbal. But moves all 4 extremities. The patient continues to be atrial fibrillation with fast ventricular response. No other history is available. There is no ventricular arrhythmia seen on the monitor. The patient is on 10 mg/h of IV Cardizem infusion. As per the social workers conversation with the patient's granddaughter the patient prior to admission was able to talk with good mentation. There patient's altered mental status is something new. PHYSICAL EXAMINATION: The patient appears to be chronically ill and of malnourished stature. Selected Entries 08/29/19 14:00 Temperature 98.8 F Temperature Axillary Source Pulse Rate 118 H Respiratory 22 H Rate Blood Pressure 91/54 L [Right Calf] Blood Pressure 66 Mean [Right Calf] Blood Pressure Supine Position [Right Calf] O2 Sat by Pulse 95 Oximetry Oxygen Delivery Nasal Cannula Method ( includes room air) Oxygen Flow 2.0 Rate HEAD: Is atraumatic normocephalic. EYES:: Pupils equal round regular reactive to light. ENT is negative. NECK: Supple there is no JVD.: There is no bruit there is no lymphadenopathy there is no goiter. TRACHEA: Lungs show diminished air entry prolonged expiration. Few dry crackles in the right mid zone and right base. There is scattered rhonchi but no wheezing. There is no definite rales of CHF. HEART: S1-S2 is heard. S1 is variable intensity. There is no S3 gallop. There is no S4 gallop. Systolic murmur left sternal border and the apex there is no rub. ABDOMEN: Soft. Nontender. There is no hepatosplenomegaly. EXTREMITIES: Femorals are diminished. There is no femoral bruits. Leg pulses are diminished. There is no pedal edema. There is no DVT or cellulitis. DIRECTOR OF MATERIALS MANAGEMENT patient the patient is awake confused but moves all 4 extremities. PSYCHIATRIC exam: Not done in detail. The patient at present is not agitated. Labs- All tests 24 hr 08/29/19 08/29/19 08/29/19 04:51 04:58 15:22 WBC 10.1 RBC 5.04 Hgb 15.0 Hct 44.1 MCV 87 MCH 29.8 MCHC 34.1 RDW 14.9 H Plt Count 221 Ammonia TSH 1.31 Free T4 1.97 Free T3 pg/mL 2.91 Urine Color YELLOW Urine Appearance CLEAR Urine pH 5.0 Ur Specific [place] 1.013 Urine Protein NEGATIVE Urine Glucose (UA) NEGATIVE Urine Ketones TRACE H Urine Blood NEGATIVE Urine Nitrite (Reflex) NEGATIVE Urine Bilirubin NEGATIVE Urine Urobilinogen NEGATIVE Leukocyte Esterase Rfl NEGATIVE Urine RBC (Auto) 1 U Hyaline Cast (Auto) 15 Urine WBC (Reflex) 1 Squamous Epi Cells Auto 1 Urine Mucus (Auto) OCC Urine Ascorbic Acid NEGATIVE 08/29/19 19:13 WBC RBC Hgb Hct MCV MCH MCHC RDW Plt Count Ammonia < 8.7 L TSH Free T4 Free T3 pg/mL Urine Color Urine Appearance Urine pH Ur Specific [place] Urine Protein Urine Glucose (UA) Urine Ketones Urine Blood Urine Nitrite (Reflex) Urine Bilirubin Urine Urobilinogen Leukocyte Esterase Rfl Urine RBC (Auto) U Hyaline Cast (Auto) Urine WBC (Reflex) Squamous Epi Cells Auto Urine Mucus (Auto) Urine Ascorbic Acid Chest X-Ray 08/24/19 21:16 IMPRESSION: Confluent right mid to lower lung zone opacity, suspicious for pneumonia. Interstitial lines about the periphery of the right lung base likely indicates superimposed interstitial edema. copyright 2010 [employer]- All Rights Reserved Chest X-Ray 08/27/19 00:00 IMPRESSION: Persistent dense left lower lobe consolidation worrisome for pneumonia Alveolar and interstitial infiltrates right lung worrisome for pulmonary edema IMPRESSION/RECOMMENDATION: 1. Atrial fibrillation with fast ventricular response. The patient is not able to take p.o. Continue the patient on Cardizem drip. Patient not a candidate for long-term anticoagulation. Also will start the patient on IV Cardizem daily. Need to discuss with the family about the patient's CODE STATUS and if a PEG tube or J-tube needs to be. Placed. 2. Altered mental status:? Cause as per family member the patient was lucid and with all his mental faculties prior to admission. 3. Dementia: Most likely this is the cause of the patient's altered mental status compounded with metabolic encephalopathy due to patient's pneumonia. 4. Pneumonia: Continue antibiotics. 5. Acute exacerbation of COPD. Continue anti-COPD treatment. 6. Cardiomyopathy: Patient blood pressure is low hence cannot place the patient on IV Lopressor or IV JAIRON inhibitor. 7. Moderate pulmonary hypertension. Trace this is improved with the patient COPD exhibit daily exacerbation resolving and the pneumonia being cleared. Medications reviewed. Medication regimen and management plan discussed with attending physician. Medical decision making is of moderate complexity
[2019-08-29] MEDS: LEVOFLOXACIN 750 MG/D5W RTU 750 MG/150 ML RTUPB IV SCH (22:23)
[2019-08-30] MEDS: LEVALBUTEROL HCL NEB 1.25 MG/3 ML AMPUL NEB SCH ×6 (04:03→19:34)
[2019-08-30] MEDS: METOPROLOL SUCCINATE 25 MG TAB.SR.24H PO SCH ×2 (06:39→17:06)
[2019-08-30] MEDS: DILTIAZEM HCL/D5W 125 MG/125 ML RTUINJ IV PRN ×2 (07:29→18:48)
--- NOTE | 2019-08-30 09:05 | PDOC PROGRESS REPORT ---
Subjective Progress Note for:: 08/30/19 Reason For Visit: COPD EXACERBATION,ENCEPHALOPATHY PNEUMONIA 08/30/2019 COPD exacerbation, pneumonia, agitation, confusion, dementia Physical Exam Vital Signs: Temp Pulse Resp BP Pulse Ox 97.8 F 98 25 H 143/72 H 94 08/30/19 03:13 08/30/19 08:00 08/30/19 04:04 08/30/19 08:00 08/30/19 07:05 Intake & Output 08/29/19 08/30/19 08/31/19 06:59 06:59 06:59 Intake Total 622 1035 62 Output Total 200 625 Balance 422 410 62 Weight 53.9 kg 53.5 kg General appearance: PRESENT: mild distress Respiratory exam: PRESENT: decreased breath sounds, wheezes Cardiovascular exam: PRESENT: tachycardia Neurological exam: PRESENT: alert, awake, CN II-XII grossly intact, motor sensory deficit, other - Patient does not follow commands patient does not answer questions appropriately Psychiatric exam: PRESENT: agitated Results Laboratory Results: 08/29/19 04:51 08/28/19 12:47 08/29/19 08/29/19 15:22 19:13 Ammonia < 8.7 L TSH 1.31 Free T4 1.97 Free T3 pg/mL 2.91 08/24/19 21:50 Blood Blood Culture - Final NO GROWTH IN 5 DAYS 08/24/19 21:22 Blood Blood Culture - Final NO GROWTH IN 5 DAYS 08/28/19 12:47 NT-Pro-B Natriuret Pep 6890 H Impressions: Chest X-Ray 08/27/19 00:00 IMPRESSION: Persistent dense left lower lobe consolidation worrisome for pneumonia Alveolar and interstitial infiltrates right lung worrisome for pulmonary edema Assessment and Plan - Diagnosis (1) Acute respiratory failure Is this a current diagnosis for this admission?: Yes (2) Atrial fibrillation with RVR Is this a current diagnosis for this admission?: Yes (3) Pneumonia Qualifiers: Pneumonia type: due to unspecified organism Laterality: right Lung location: unspecified part of lung Qualified Code(s): J18.9 - Pneumonia, unspecified organism Is this a current diagnosis for this admission?: Yes (4) Sepsis Qualifiers: Sepsis type: sepsis due to unspecified organism Sepsis acute organ dysfunction status: unspecified Qualified Code(s): A41.9 - Sepsis, unspecified organism Is this a current diagnosis for this admission?: Yes (5) Agitation Is this a current diagnosis for this admission?: Yes (6) Altered mental status Is this a current diagnosis for this admission?: Yes - Plan Summary Summary: 08/26/2019 Originally admitted through the emergency room for respiratory failure, agitation. Evidently patient lives alone at home Temperature is 98.5. Earlier this morning heart rate was between 120 and 136 it is now stabilized to 110 Blood pressure however there is to be stable around 130/80 Patient is getting Lopressor 5 mg IV every 6 hours as needed sustained heart rate greater than 120 Patient is currently on a Cardizem drip, 10 mL's per hour Levaquin IV daily for his pneumonia, right lower lobe I am going to resume patient's Plavix as well as Imdur will hold on his Flomax and amlodipine at the present time Patient's labs reveal his white count to be up slightly to 13.7 Electrolytes are grossly normal 08/27/2019 The weaver wire loom was called last night for patient being agitated. Medication did not seem to help and therefore he was put in soft restraints This morning the patient is no longer agitated he is out of restraints. Patient is reportedly deaf however he heard me speaking to him and answered questions as he did the nurse Temperature is 98.4 he is still tachycardic 111-123 blood pressure stable 133/88 I am going to increase his Toprol to 50 mg every 12 hours White count is coming down on admission 13.7 slightly lower today 12.3, potassium is stable 3.5 Blood cultures negative x48 hours, echocardiogram is negative for vegetation or sepsis ejection fracture is 35% Patient is on Levaquin IV Chest x-ray on admission approximately 4 days ago patient for pneumonia in the right lower lobe possible interstitial edema. Going to repeat a portable chest x-ray today 08/28/2019 Patient does not appear to be running a fever. His pulse rate continues to fluctuate between the mid 90s to 120. Blood pressure usually runs around 130/70 Respirations between 16 and 28. Oxygen saturation can be in the low 80s or the high 90s Patient's vital signs are very labile, hard to control Patient's chest x-ray yesterday showed continued left lower lobe pneumonia and in the right lung field possible edema. I agree when comparing films back from July. I am going to repeat labs today white count 2 days ago was just slightly high 12.3 I am going to add IV Lasix to his medications today, also add a second antibiotic. Also a scheduled dosing of Solu-Medrol. I have consulted cardiology for his sustained tachycardia and poor response to Cardizem 08/29/2019 Morning sometime around 2:00 in the morning his heart rate went from 117 down to 74. It stayed in that range for about 2 hours and then for about 3 hours went back up into the low 100s, and now for the last 3 hours it appears to be about 70 Patient has maintained a good normal blood pressure this whole time throughout this morning 124/73 Oxygen saturation about 99% I am going to have them cut down the flow to 3 L Count remains normal 10,100 Chemistry appear grossly normal, BNP was elevated yesterday to 6890 today's is pending Patient has been seen by cardiology who is adjusting medications and making recommendations Continue IV Lasix continue antibiotics as well as Solu-Medrol Patient has had no recent agitation 08/30/2019 I had a long discussion with patient's daughter yesterday, Crystal, who stated she has not seen her father since July. At that time and previously he has had spells or episodes of confusion and dementia. She states in the past it is sometimes been related to an elevated ammonia level. I have told the daughter that the patient Mr. lock is not doing well and may not survive this illness. She is supposed to come to the hospital today and discuss his CODE STATUS. This morning it was charted that the patient's blood pressure was 80/53 however when I went to the room shortly thereafter manual blood pressure was 96/69 and then soon thereafter his pressures went up to 150/70. Patient's heart rate has gone back up through the night into the low 100s and then early this morning he became tachycardic around 140. Now he is back down in the low 100s. All during this time patient's oxygen saturations have been running in the mid 90s on 2 L nasal cannula Patient does not appear to be in any more respiratory distress than he normally is. Patient's labs appear stable. Continue IV Levaquin and Rocephin Also continue V Lasix. I will increase Solu-Medrol to every 8 hours Continue the Toprol. Patient is currently on a Cardizem drip 5 mL's per hour Once again I will speak to the family today about CODE STATUS, I do not think that this is a new mental status change I think is been ongoing for some time and is worsened. I think the patient is going to be very difficult to manage medically, his outcome is unknown but on a poor prognosis trend. - Time Time Spent with patient: 35 or more minutes
[2019-08-30] MEDS: FLUTICASONE NASAL SPRAY 50 MCG/SPRY 120 SPRAY/16 GM NASL SCH ×2 (09:35→22:44)
[2019-08-30] MEDS: METHYLPREDNISOLONE INJ 40 MG/1 ML SDV IV SCH ×2 (09:56→17:11)
[2019-08-30] MEDS: FUROSEMIDE INJ/PF 20 MG/2 ML SDV IV SCH ×2 (09:56→22:43)
[2019-08-30] MEDS: ENOXAPARIN SODIUM INJ 60 MG/0.6 ML DISP.SYRIN SUBCUT SCH ×2 (09:56→22:44)
[2019-08-30 10:25] LABS: ANION GAP 10 (5-19); BLOOD UREA NITROGEN 45 mg/dL (7-20); CALCIUM 8.9 mg/dL (8.4-10.2); CARBON DIOXIDE 27 mmol/L (22-30); CHLORIDE 117 mmol/L (98-107); GLUCOSE 146 mg/dL (75-110); POTASSIUM 3.5 mmol/L (3.6-5.0)
[2019-08-30 10:28] LABS: ARTERIAL BLOOD BASE EXCESS 0.8 mmol/L; ARTERIAL BLOOD H2CO3 0.98 mmol/L (1.05-1.35); ARTERIAL BLOOD HCO3 23.6 mmol/L (20-24); ARTERIAL BLOOD O2 SATURATION 97.3 % (94-98); ARTERIAL BLOOD PCO2 32.6 mmHg (35-45); ARTERIAL BLOOD PH 7.48 (7.35-7.45); ARTERIAL BLOOD PO2 87.9 mmHg (80-100); ARTERIAL BLOOD TOTAL CO2 24.6 mmol/L (23-27)
[2019-08-30 10:29] LABS: ARTERIAL BLOOD FIO2 4L
[2019-08-30] MEDS: CEFTRIAXONE 1 GM/D5W RTU 1 GM/50 ML RTUPB IV SCH ×2 (14:33→22:41)
[2019-08-30] MEDS: LORAZEPAM INJ 2 MG/1 ML VIAL IV PRN ×2 (14:44→18:06)
--- NOTE | 2019-08-30 14:59 | Progress Note ---
Provider Note Provider Note: CARDIOLOGY PROGRESS NOTE by Dr. Ana Perez on 08/30/2019. SUBJECTIVE: Patient remains confused and agitated and restrained. As per the nurses the family wants the patient to be a full code. Hence need to discuss with the family the option of feeding tube or a J-tube since the patient is not taking orally. The patient continues to be in atrial fibrillation. His heart rate is in the 130s. With a dose of IV digoxin the patient's heart rate has improved. His blood pressure is improved. His heart rate now is around 110 and his systolic blood pressure is 138. There is no ventricular arrhythmia seen on the monitor. PHYSICAL EXAMINATION: The patient appears to be chronically ill and malnourished. Selected Entries 08/30/19 08/30/19 08/30/19 10:00 10:05 11:54 Temperature Afebrile Temperature Source Pulse Rate 131 H Blood Pressure 135/88 H Blood Pressure 103 Mean Oxygen Delivery Nasal Cannula Method ( includes room air) Oxygen Flow 4 Rate 08/30/19 08/30/19 08/30/19 16:49 17:00 17:49 Temperature 98.0 F Temperature Axillary Source Pulse Rate 129 H 110 H Blood Pressure 148/94 H Blood Pressure Mean Oxygen Delivery Method ( includes room air) Oxygen Flow Rate HEAD: Is atraumatic normocephalic. EYES:: Pupils equal round regular reactive to light. ENT is negative. NECK: Supple there is no JVD.: There is no bruit there is no lymphadenopathy there is no goiter. TRACHEA: Lungs show diminished air entry prolonged expiration. Few dry crackles in the right mid zone and right base. There is scattered rhonchi but no wheezing. There is no definite rales of CHF. HEART: S1-S2 is heard. S1 is variable intensity. There is no S3 gallop. There is no S4 gallop. Systolic murmur left sternal border and the apex there is no rub. ABDOMEN: Soft. Nontender. There is no hepatosplenomegaly. EXTREMITIES: Femorals are diminished. There is no femoral bruits. Leg pulses are diminished. There is no pedal edema. There is no DVT or cellulitis. 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 PSYCHIATRIC exam: Not done in detail. The patient at present is not agitated. Labs- All tests 24 hr 03/08/30/19 08/30/19 09:51 09:51 10:10 Carbonic Acid 0.98 L HCO3/H2CO3 Ratio 24:1 ABG pH 7.48 H ABG pCO2 32.6 L ABG pO2 87.9 ABG HCO3 23.6 ABG Total CO2 24.6 ABG O2 Saturation 97.3 ABG Base Excess 0.8 FiO2 4L Sodium 154.3 H Potassium 3.5 L Chloride 117 H Carbon Dioxide 27 Anion Gap 10 BUN 45 H Creatinine 1.15 Est GFR ( Amer) > 60 Est GFR (MDRD) Non-Af > 60 Glucose 146 H Calcium 8.9 NT-Pro-B Natriuret Pep 6980 H Chest X-Ray 08/24/19 21:16 IMPRESSION: Confluent right mid to lower lung zone opacity, suspicious for pneumonia. Interstitial lines about the periphery of the right lung base likely indicates superimposed interstitial edema. copyright 2010 [employer]- All Rights Reserved Chest X-Ray 08/27/19 00:00 IMPRESSION: Persistent dense left lower lobe consolidation worrisome for pneum onia Alveolar and interstitial infiltrates right lung worrisome for pulmonary edema IMPRESSION/RECOMMENDATION: 1. Atrial fibrillation with fast ventricular response. The patient is not able to take p.o. Continue the patient on Cardizem drip. Patient not a candidate for long-term anticoagulation. Also will start the patient on IV digoxin daily. Need to discuss with the family about the patient's CODE STATUS and if a PEG tube or J-tube needs to be placed. 2. Altered mental status:? Cause as per family member the patient was lucid and with all his mental faculties prior to admission. 3. Dementia: Most likely this is the cause of the patient's altered mental status compounded with metabolic encephalopathy due to patient's pneumonia. 4. Pneumonia: Continue antibiotics. 5. Acute exacerbation of COPD. Continue anti-COPD treatment. 6. Cardiomyopathy: Patient blood pressure is low hence cannot place the patient on IV Lopressor or IV JAIRON inhibitor. 7. Moderate pulmonary hypertension. Trace this is improved with the patient COPD exhibit daily exacerbation resolving and the pneumonia being cleared. Medications reviewed. Medication regimen and management plan discussed with attending physician. Medical decision making is of moderate complexity
[2019-08-30] MEDS: LEVOFLOXACIN 750 MG/D5W RTU 750 MG/150 ML RTUPB IV SCH (22:42)
[2019-08-31] MEDS: METOPROLOL TARTRATE PF/INJ 5 MG/5 ML SDV IV PRN ×2 (00:20→05:55)
[2019-08-31] MEDS: METHYLPREDNISOLONE INJ 40 MG/1 ML SDV IV SCH ×3 (02:20→17:22)
[2019-08-31] MEDS: DILTIAZEM HCL/D5W 125 MG/125 ML RTUINJ IV PRN ×2 (03:49→12:46)
[2019-08-31] MEDS: METOPROLOL SUCCINATE 25 MG TAB.SR.24H PO SCH (05:55)
[2019-08-31] MEDS: LORAZEPAM INJ 2 MG/1 ML VIAL IV PRN (06:00)
[2019-08-31] MEDS: LEVALBUTEROL HCL NEB 1.25 MG/3 ML AMPUL NEB SCH ×3 (09:12→19:43)
[2019-08-31] MEDS ORDERED: MORPHINE SULFATE 10 MG/ML INJ IV PRN (09:23)
[2019-08-31] MEDS ORDERED: MORPHINE SULFATE 10 MG/ML INJ ONE (09:27)
[2019-08-31] MEDS: ENOXAPARIN SODIUM INJ 60 MG/0.6 ML DISP.SYRIN SUBCUT SCH ×2 (09:36→22:31)
[2019-08-31] MEDS: FLUTICASONE NASAL SPRAY 50 MCG/SPRY 120 SPRAY/16 GM NASL SCH ×2 (09:36→22:31)
[2019-08-31] MEDS: FUROSEMIDE INJ/PF 20 MG/2 ML SDV IV SCH ×2 (09:36→22:30)
[2019-08-31] MEDS: DIGOXIN INJ 0.5 MG/2 ML AMPULE IV SCH (09:37)
--- NOTE | 2019-08-31 09:42 | PDOC PROGRESS REPORT ---
Subjective Progress Note for:: 08/31/19 Reason For Visit: COPD EXACERBATION,ENCEPHALOPATHY PNEUMONIA 08/31/2019 Patient was admitted for COPD exacerbation, pneumonia, agitation, confusion, dementia, atrial fib Physical Exam Vital Signs: Temp Pulse Resp BP Pulse Ox 97.9 F 133 H 24 H 120/69 93 08/31/19 07:40 08/31/19 08:00 08/31/19 07:40 08/31/19 08:00 08/31/19 07:40 Intake & Output 08/30/19 08/31/19 09/01/19 06:59 06:59 06:59 Intake Total 1035 354 Output Total 625 Balance 410 354 Weight 53.5 kg 52.7 kg General appearance: PRESENT: mild distress, other - Agitation Respiratory exam: PRESENT: decreased breath sounds, wheezes Cardiovascular exam: PRESENT: tachycardia Neurological exam: PRESENT: altered Psychiatric exam: PRESENT: agitated Results Laboratory Results: 08/29/19 04:51 08/30/19 09:51 08/30/19 08/30/19 09:51 10:10 Carbonic Acid 0.98 L HCO3/H2CO3 Ratio 24:1 ABG pH 7.48 H ABG pCO2 32.6 L ABG pO2 87.9 ABG HCO3 23.6 ABG O2 Saturation 97.3 ABG Base Excess 0.8 FiO2 4L Sodium 154.3 H Potassium 3.5 L Chloride 117 H Carbon Dioxide 27 Anion Gap 10 BUN 45 H Creatinine 1.15 Est GFR ( Amer) > 60 Glucose 146 H Calcium 8.9 08/28/19 08/30/19 12:47 09:51 NT-Pro-B Natriuret Pep 6890 H 6980 H Impressions: Chest X-Ray 08/27/19 00:00 IMPRESSION: Persistent dense left lower lobe consolidation worrisome for pneumonia Alveolar and interstitial infiltrates right lung worrisome for pulmonary edema Assessment and Plan - Diagnosis (1) Acute respiratory failure Is this a current diagnosis for this admission?: Yes (2) Atrial fibrillation with RVR Is this a current diagnosis for this admission?: Yes (3) Pneumonia Qualifiers: Pneumonia type: due to unspecified organism Laterality: right Lung location: unspecified part of lung Qualified Code(s): J18.9 - Pneumonia, unspecified organism Is this a current diagnosis for this admission?: Yes (4) Sepsis Qualifiers: Sepsis type: sepsis due to unspecified organism Sepsis acute organ dysfunction status: unspecified Qualified Code(s): A41.9 - Sepsis, unspecified organism Is this a current diagnosis for this admission?: Yes (5) Agitation Is this a current diagnosis for this admission?: Yes (6) Altered mental status Is this a current diagnosis for this admission?: Yes - Plan Summary Summary: 08/26/2019 Originally admitted through the emergency room for respiratory failure, agitation. Evidently patient lives alone at home Temperature is 98.5. Earlier this morning heart rate was between 120 and 136 it is now stabilized to 110 Blood pressure however there is to be stable around 130/80 Patient is getting Lopressor 5 mg IV every 6 hours as needed sustained heart rate greater than 120 Patient is currently on a Cardizem drip, 10 mL's per hour Levaquin IV daily for his pneumonia, right lower lobe I am going to resume patient's Plavix as well as Imdur will hold on his Flomax and amlodipine at the present time Patient's labs reveal his white count to be up slightly to 13.7 Electrolytes are grossly normal 08/27/2019 The cloud subject matter expert was called last night for patient being agitated. Medication did not seem to help and therefore he was put in soft restraints This morning the patient is no longer agitated he is out of restraints. Patient is reportedly deaf however he heard me speaking to him and answered questions as he did the nurse Temperature is 98.4 he is still tachycardic 111-123 blood pressure stable 133/88 I am going to increase his Toprol to 50 mg every 12 hours White count is coming down on admission 13.7 slightly lower today 12.3, potassium is stable 3.5 Blood cultures negative x48 hours, echocardiogram is negative for vegetation or sepsis ejection fracture is 35% Patient is on Levaquin IV Chest x-ray on admission approximately 4 days ago patient for pneumonia in the right lower lobe possible interstitial edema. Going to repeat a portable chest x-ray today 08/28/2019 Patient does not appear to be running a fever. His pulse rate continues to fluctuate between the mid 90s to 120. Blood pressure usually runs around 130/70 Respirations between 16 and 28. Oxygen saturation can be in the low 80s or the high 90s Patient's vital signs are very labile, hard to control Patient's chest x-ray yesterday showed continued left lower lobe pneumonia and in the right lung field possible edema. I agree when comparing films back from July. I am going to repeat labs today white count 2 days ago was just slightly high 12.3 I am going to add IV Lasix to his medications today, also add a second antibiotic. Also a scheduled dosing of Solu-Medrol. I have consulted cardiology for his sustained tachycardia and poor response to Cardizem 08/29/2019 Morning sometime around 2:00 in the morning his heart rate went from 117 down to 74. It stayed in that range for about 2 hours and then for about 3 hours went back up into the low 100s, and now for the last 3 hours it appears to be about 70 Patient has maintained a good normal blood pressure this whole time throughout this morning 124/73 Oxygen saturation about 99% I am going to have them cut down the flow to 3 L Count remains normal 10,100 Chemistry appear grossly normal, BNP was elevated yesterday to 6890 today's is pending Patient has been seen by cardiology who is adjusting medications and making recommendations Continue IV Lasix continue antibiotics as well as Solu-Medrol Patient has had no recent agitation 08/30/2019 I had a long discussion with patient's daughter yesterday, Crystal, who stated she has not seen her father since July. At that time and previously he has had spells or episodes of confusion and dementia. She states in the past it is sometimes been related to an elevated ammonia level. I have told the daughter that the patient, Mr. lock is not doing well and may not survive this illness. She is supposed to come to the hospital today and discuss his CODE STATUS. This morning it was charted that the patient's blood pressure was 80/53 however when I went to the room shortly thereafter manual blood pressure was 96/69 and then soon thereafter his pressures went up to 150/70. Patient's heart rate has gone back up through the night into the low 100s and then early this morning he became tachycardic around 140. Now he is back down in the low 100s. All during this time patient's oxygen saturations have been running in the mid 90s on 2 L nasal cannula Patient does not appear to be in any more respiratory distress than he normally is. Patient's labs appear stable. Continue IV Levaquin and Rocephin Also continue IV Lasix. I will increase Solu-Medrol to every 8 hours Continue the Toprol. Patient is currently on a Cardizem drip 5 mL's per hour Once again I will speak to the family today about CODE STATUS, I do not think that this is a new mental status change I think is been ongoing for some time and is worsened. I think the patient is going to be very difficult to manage medically, his outcome is unknown but on a poor prognosis trend. 08/31/2019 Patient once again is tachycardic this morning, baseline heart rate appears to be about 110 but he is gone back up to 133. Patient's Cardizem drip is at 15 mL's. Patient has been started on IV digoxin and this appears to be helpful. Patient is maintaining his blood pressure now at approximately 140/50 although i t does fluctuate as well Patient is able to maintain an oxygen saturation in the mid 90s with only 2 or 3 L of oxygen by nasal cannula. I suspect this will be the patient's new norm. Patient's blood gas yesterday was actually better yesterday than previous days when he was on a much higher flow rate. I will write an order to keep oxygen rate at no higher than 3 L Ativan does not seem to be helping him at all for his agitation he is continually trying to get out of bed. Going to DC that and instead switch him over to morphine every 4 hours. Hopefully I can speak with some family members today concerning feeding status and once again approach CODE STATUS. I think patient would be better served if he was on hospice status. I agree with cardiology I think his encephalopathy was present prior to coming to the hospital, ever it is been worsened by his pneumonia, hypoxia, poor nutritional status. I am going to recheck labs today. I Discussed patient's care with cardiology yesterday and with nursing staff today - Time Time Spent with patient: 25-34 minutes
[2019-08-31 10:06] LABS: ABSOLUTE LYMPHOCYTES (AUTO) 1.1 10^3/uL (0.5-4.7); ABSOLUTE MONOCYTES (AUTO) 0.7 10^3/uL (0.1-1.4); ABSOLUTE NEUT (AUTO) 13.2 10^3/uL (1.7-8.2); BASOPHILS % (AUTO) 0.2 % (0-2); HEMATOCRIT 43.1 % (37.9-51.0); HEMOGLOBIN 14.4 g/dL (13.5-17.0); LYMPHOCYTES % (AUTO) 7.5 % (13-45); MEAN CORPUSCULAR HEMOGLOBIN 29.7 pg (27.0-33.4); MEAN CORPUSCULAR HGB CONC 33.4 g/dL (32.0-36.0); MEAN CORPUSCULAR VOLUME 89 fl (80-97); MONOCYTES % (AUTO) 4.7 % (3-13); PLATELET COUNT 231 10^3/uL (150-450); RED BLOOD COUNT 4.86 10^6/uL (4.35-5.55); RED CELL DISTRIBUTION WIDTH 15.1 % (11.5-14.0); SEGMENTED NEUTROPHILS % (AUTO) 87.6 % (42-78); TOTAL CELLS COUNTED % (AUTO) 100 %; WHITE BLOOD COUNT 15.1 10^3/uL (4.0-10.5)
[2019-08-31 10:30] LABS: ALBUMIN 3.5 g/dL (3.5-5.0); ALKALINE PHOSPHATASE 58 U/L (38-126); ANION GAP 8 (5-19); ASPARTATE AMINO TRANSFERASE 43 U/L (17-59); BILIRUBIN,DIRECT 0.5 mg/dL (0.0-0.4); BILIRUBIN,TOTAL 0.7 mg/dL (0.2-1.3); BLOOD UREA NITROGEN 48 mg/dL (7-20); CALCIUM 8.4 mg/dL (8.4-10.2); CARBON DIOXIDE 28 mmol/L (22-30); CHLORIDE 120 mmol/L (98-107); GLUCOSE 140 mg/dL (75-110); POTASSIUM 4.2 mmol/L (3.6-5.0); TOTAL PROTEIN 7.2 g/dL (6.3-8.2)
[2019-08-31] MEDS ORDERED: METOPROLOL TARTRATE 50 MG TABLET PO ONE (12:00)
[2019-08-31] MEDS: CEFTRIAXONE 1 GM/D5W RTU 1 GM/50 ML RTUPB IV SCH ×2 (12:08→22:30)
--- NOTE | 2019-08-31 13:58 | Progress Note ---
Provider Note Provider Note: CARDIOLOGY PROGRESS NOTE by Dr. Ana Perez on 08/31/2019. Subjective: As per the nurse the patient did eat some food this morning. And she is confident that the patient without any risk can be given oral tablets. The patient is confused but at present not agitated. The patient continues to be in atrial fibrillation with a ventricular response in the 110 to 120 bpm. There is no evidence of CVA. The patient does not appear to be in any major distress. PHYSICAL EXAMINATION: The patient is chronically ill and appears to be malnourished Selected Entries 08/31/19 07:40 Temperature 97.9 F Temperature Axillary Source Pulse Rate 110 H Respiratory 24 H Rate Blood Pressure 116/68 Blood Pressure 84 Mean O2 Sat by Pulse 93 Oximetry Oxygen Flow 4 Rate HEAD: Is atraumatic normocephalic. EYES:: Pupils equal round regular reactive to light. ENT is negative. NECK: Supple there is no JVD.: There is no bruit there is no lymphadenopathy there is no goiter. TRACHEA: Lungs show diminished air entry prolonged expiration. Few dry crackles in the right mid zone and right base. There is scattered rhonchi but no wheezing. There is no definite rales of CHF. HEART: S1-S2 is heard. S1 is variable intensity. There is no S3 gallop. There is no S4 gallop. Systolic murmur left sternal border and the apex there is no rub. ABDOMEN: Soft. Nontender. There is no hepatosplenomegaly. EXTREMITIES: Femorals are diminished. There is no femoral bruits. Leg pulses are diminished. There is no pedal edema. There is no DVT or cellulitis. ORE GRADER patient the patient is awake confused but moves all 4 extremities. PSYCHIATRIC exam: Not done in detail. The patient at present is not agitated. Labs- All tests 24 hr 08/31/19 08/31/19 08/31/19 09:56 09:56 09:56 WBC 15.1 H RBC 4.86 Hgb 14.4 Hct 43.1 MCV 89 MCH 29.7 MCHC 33.4 RDW 15.1 H Plt Count 231 Lymph % (Auto) 7.5 L Harris % (Auto) 4.7 Eos % (Auto) 0.0 Baso % (Auto) 0.2 Absolute Neuts (auto) 13.2 H Absolute Lymphs (auto) 1.1 Absolute Monos (auto) 0.7 Absolute Eos (auto) 0.0 Absolute Basos (auto) 0.0 Seg Neutrophils % 87.6 H Sodium 156.2 H Potassium 4.2 Chloride 120 H Carbon Dioxide 28 Anion Gap 8 BUN 48 H Creatinine 0.95 Est GFR ( Amer) > 60 Est GFR (MDRD) Non-Af > 60 Glucose 140 H Calcium 8.4 Total Bilirubin 0.7 Direct Bilirubin 0.5 H Neonat Total Bilirubin Not Reportable Neonat Direct Bilirubin Not Reportable Neonat Indirect Bili Not Reportable AST 43 ALT 35 Alkaline Phosphatase 58 NT-Pro-B Natriuret Pep 5530 H Total Protein 7.2 Albumin 3.5 Chest X-Ray 08/24/19 21:16 IMPRESSION: Confluent right mid to lower lung zone opacity, suspicious for pneumonia. Interstitial lines about the periphery of the right lung base likely indicates superimposed interstitial edema. copyright 2010 [employer]- All Rights Reserved Chest X-Ray 08/27/19 00:00 IMPRESSION: Persistent dense left lower lobe consolidation worrisome for pneumonia Alveolar and interstitial infiltrates right lung worrisome for pulmonary edema IMPRESSION/RECOMMENDATION: 1. Atrial fibrillation with fast ventricular response. The patient is now able to take p.o. We will give the patient 50 mg of Lopressor now crushed in applesauce and 50 mg p.o. every 12 hours. Will taper off the Cardizem to 5 mg/h and see if he can stop it.. Patient not a candidate for long-term anticoagulat ion. Also will start the patient on IV digoxin daily. Need to discuss with the family about the patient's CODE STATUS and if a PEG tube or J-tube needs to be placed. 2. Altered mental status:? Cause as per family member the patient was lucid and with all his mental faculties prior to admission. 3. Dementia: Most likely this is the cause of the patient's altered mental status compounded with metabolic encephalopathy due to patient's pneumonia. 4. Pneumonia: Continue antibiotics. 5. Acute exacerbation of COPD. Continue anti-COPD treatment. 6. Cardiomyopathy: Patient blood pressure is low hence cannot place the patient on IV Lopressor or IV JAIRON inhibitor. 7. Moderate pulmonary hypertension. Trace this is improved with the patient COPD exhibit daily exacerbation resolving and the pneumonia being cleared. Medications reviewed. Medication regimen and management plan discussed with attending physician. Medical decision making is of high complexity, in view of the need to adjust the patient's medication. 40 minutes spent on this patient more than 50% of time spent in direct patient care. Will follow
--- NOTE | 2019-08-31 14:41 | Progress Note ---
Provider Note Provider Note: Today I discussed with family member, Linda, who is actually the primary caregiver for the patient. Patient has lived with her and her for over a year, and before that she states that anytime he got sick they were the ones who took care of him in nurtured him back to health. She is a granddaughter in law. Her is the grandson of the patient. She tells me today that over the last several months he has been having episodes where he would have altered mental status, would not eat, seemed depressed, and these episodes might last for several days. I got the impression that they were happening more often and lasting longer. She said he was just in the hospital couple weeks ago with altered mental status and confusion. I looked him up in the computer and on July 14, 2019 he was in the emergency room for confusion and weakness. According to the ER note he had been acting like that about 1 week prior to the ER visit. She states that after that visit she took all of his medications away from him and reintroduce them 1 at a time to see if it was secondary to medications. Had no improvement from that time until this admission. Work-up in the emergency room at that time did not reveal a cause for his confusion. In light of this information and with the fact that patient is not getting better spite aggressive medical treatments she has agreed to the patient going home with hospice care. I have contacted hospice today on Sunday, and they are going to initiate a consult referral tomorrow. She does not want the patient to undergo any tube feedings and understands the poor prognosis. She is to call Crystal the daughter this afternoon and inform her of these plans.
[2019-08-31] MEDS ORDERED: DIGOXIN INJ 0.5 MG/2 ML AMPULE IV ONE (15:30)
[2019-08-31] MEDS: LEVOFLOXACIN 750 MG/D5W RTU 750 MG/150 ML RTUPB IV SCH (22:30)
[2019-08-31] MEDS: METOPROLOL TARTRATE 50 MG TABLET PO SCH (22:30)
[2019-09-01] MEDS: METOPROLOL TARTRATE PF/INJ 5 MG/5 ML SDV IV PRN ×5 (00:13→03:16)
[2019-09-01] MEDS ORDERED: METOPROLOL TARTRATE PF/INJ 5 MG/5 ML SDV IV SCH (00:15)
[2019-09-01] MEDS: HALOPERIDOL LACTATE INJ 5 MG/1 ML VIAL IV PRN (00:45)
[2019-09-01] MEDS ORDERED: METOPROLOL TARTRATE 50 MG TABLET PO ONE (01:00)
[2019-09-01] MEDS: METHYLPREDNISOLONE INJ 40 MG/1 ML SDV IV SCH ×2 (01:41→09:44)
[2019-09-01 04:57] LABS: HEMATOCRIT 46.9 % (37.9-51.0); HEMOGLOBIN 15.9 g/dL (13.5-17.0); MEAN CORPUSCULAR HEMOGLOBIN 30.1 pg (27.0-33.4); MEAN CORPUSCULAR HGB CONC 33.8 g/dL (32.0-36.0); MEAN CORPUSCULAR VOLUME 89 fl (80-97); PLATELET COUNT 224 10^3/uL (150-450); RED BLOOD COUNT 5.28 10^6/uL (4.35-5.55); RED CELL DISTRIBUTION WIDTH 15.3 % (11.5-14.0); WHITE BLOOD COUNT 14.3 10^3/uL (4.0-10.5)
[2019-09-01] MEDS ORDERED: 1/2 NORMAL SALINE 1,000 ML IV PRN (05:44)
[2019-09-01] MEDS ORDERED: 1/2 NORMAL SALINE 1,000 ML IV ONE (05:45)
--- NOTE | 2019-09-01 05:49 | EKG REPORT ---
SEVERITY:- ABNORMAL ECG - ATRIAL FIBRILLATION, V-RATE 86-183 LEFT BUNDLE BRANCH BLOCK : Confirmed by: Ana Perez MD 01-Sep-2019 05:49:07
[2019-09-01] MEDS: LEVALBUTEROL HCL NEB 1.25 MG/3 ML AMPUL NEB SCH ×2 (08:12→14:10)
[2019-09-01] MEDS: METOPROLOL TARTRATE 50 MG TABLET PO SCH (09:44)
[2019-09-01] MEDS: FLUTICASONE NASAL SPRAY 50 MCG/SPRY 120 SPRAY/16 GM NASL SCH (09:44)
[2019-09-01] MEDS: FUROSEMIDE INJ/PF 20 MG/2 ML SDV IV SCH (09:44)
[2019-09-01] MEDS: ENOXAPARIN SODIUM INJ 60 MG/0.6 ML DISP.SYRIN SUBCUT SCH (09:45)
[2019-09-01] MEDS: DIGOXIN INJ 0.5 MG/2 ML AMPULE IV SCH (09:45)
[2019-09-01] MEDS: CEFTRIAXONE 1 GM/D5W RTU 1 GM/50 ML RTUPB IV SCH (11:00)
--- NOTE | 2019-09-01 12:32 | PDOC PROGRESS REPORT ---
Subjective Progress Note for:: 09/01/19 Reason For Visit: COPD EXACERBATION,ENCEPHALOPATHY PNEUMONIA She was admitted for altered mental status, confusion, agitation, COPD exacerbation, pneumonia, dementia, chronic atrial fib Physical Exam Vital Signs: Temp Pulse Resp BP Pulse Ox 97.5 F 82 17 117/66 97 09/01/19 08:07 09/01/19 08:12 09/01/19 08:12 09/01/19 08:07 09/01/19 08:12 Intake & Output 08/31/19 09/01/19 09/02/19 06:59 06:59 06:59 Intake Total 554 745 Balance 554 745 Weight 52.7 kg 54.2 kg General appearance: PRESENT: disheveled, mild distress, thin Respiratory exam: PRESENT: decreased breath sounds, rhonchi, wheezes Cardiovascular exam: PRESENT: tachycardia Results Laboratory Results: 09/01/19 04:39 08/31/19 09:56 09/01/19 04:39 WBC 14.3 H RBC 5.28 Hgb 15.9 Hct 46.9 MCV 89 MCH 30.1 MCHC 33.8 RDW 15.3 H Plt Count 224 08/28/19 08/30/19 08/31/19 12:47 09:51 09:56 NT-Pro-B Natriuret Pep 6890 H 6980 H 5530 H Impressions: Chest X-Ray 08/27/19 00:00 IMPRESSION: Persistent dense left lower lobe consolidation worrisome for pneumonia Alveolar and interstitial infiltrates right lung worrisome for pulmonary edema Assessment and Plan - Diagnosis (1) Acute respiratory failure Is this a current diagnosis for this admission?: Yes (2) Atrial fibrillation with RVR Is this a current diagnosis for this admission?: Yes (3) Pneumonia Qualifiers: Pneumonia type: due to unspecified organism Laterality: right Lung location: unspecified part of lung Qualified Code(s): J18.9 - Pneumonia, unspecified organism Is this a current diagnosis for this admission?: Yes (4) Sepsis Qualifiers: Sepsis type: sepsis due to unspecified organism Sepsis acute organ dysfunction status: unspecified Qualified Code(s): A41.9 - Sepsis, unspecified organism Is this a current diagnosis for this admission?: Yes (5) Agitation Is this a current diagnosis for this admission?: Yes (6) Altered mental status Is this a current diagnosis for this admission?: Yes - Plan Summary Summary: 08/26/2019 Originally admitted through the emergency room for respiratory failure, real dumont. Evidently patient lives alone at home Temperature is 98.5. Earlier this morning heart rate was between 120 and 136 it is now stabilized to 110 Blood pressure however there is to be stable around 130/80 Patient is getting Lopressor 5 mg IV every 6 hours as needed sustained heart rate greater than 120 Patient is currently on a Cardizem drip, 10 mL's per hour Levaquin IV daily for his pneumonia, right lower lobe I am going to resume patient's Plavix as well as Imdur will hold on his Flomax and amlodipine at the present time Patient's labs reveal his white count to be up slightly to 13.7 Electrolytes are grossly normal 08/27/2019 The gang hemstitching machine operator was called last night for patient being agitated. Medication did not seem to help and therefore he was put in soft restraints This morning the patient is no longer agitated he is out of restraints. Patient is reportedly deaf however he heard me speaking to him and answered questions as he did the nurse Temperature is 98.4 he is still tachycardic 111-123 blood pressure stable 133/88 I am going to increase his Toprol to 50 mg every 12 hours White count is coming down on admission 13.7 slightly lower today 12.3, potassium is stable 3.5 Blood cultures negative x48 hours, echocardiogram is negative for vegetation or sepsis ejection fracture is 35% Patient is on Levaquin IV Chest x-ray on admission approximately 4 days ago patient for pneumonia in the right lower lobe possible interstitial edema. Going to repeat a portable chest x-ray today 08/28/2019 Patient does not appear to be running a fever. His pulse rate continues to fluctuate between the mid 90s to 120. Blood pressure usually runs around 130/70 Respirations between 16 and 28. Oxygen saturation can be in the low 80s or the high 90s Patient's vital signs are very labile, hard to control Patient's chest x-ray yesterday showed continued left lower lobe pneumonia and in the right lung field possible edema. I agree when comparing films back from July. I am going to repeat labs today white count 2 days ago was just slightly high 12.3 I am going to add IV Lasix to his medications today, also add a second antibiotic. Also a scheduled dosing of Solu-Medrol. I have consulted cardiology for his sustained tachycardia and poor response to Cardizem 08/29/2019 Morning sometime around 2:00 in the morning his heart rate went from 117 down to 74. It stayed in that range for about 2 hours and then for about 3 hours went back up into the low 100s, and now for the last 3 hours it appears to be about 70 Patient has maintained a good normal blood pressure this whole time throughout this morning 124/73 Oxygen saturation about 99% I am going to have them cut down the flow to 3 L Count remains normal 10,100 Chemistry appear grossly normal, BNP was elevated yesterday to 6890 today's is pending Patient has been seen by cardiology who is adjusting medications and making recommendations Continue IV Lasix continue antibiotics as well as Solu-Medrol Patient has had no recent agitation 08/30/2019 I had a long discussion with patient's daughter yesterday, Crystal, who stated she has not seen her father since July. At that time and previously he has had spells or episodes of confusion and dementia. She states in the past it is sometimes been related to an elevated ammonia level. I have told the daughter that the patient, Mr. lock is not doing well and may not survive this illness. She is supposed to come to the hospital today and discuss his CODE STATUS. This morning it was charted that the patient's blood pressure was 80/53 however when I went to the room shortly thereafter manual blood pressure was 96/69 and then soon thereafter his pressures went up to 150/70. Patient's heart rate has gone back up through the night into the low 100s and th en early this morning he became tachycardic around 140. Now he is back down in the low 100s. All during this time patient's oxygen saturations have been running in the mid 90s on 2 L nasal cannula Patient does not appear to be in any more respiratory distress than he normally is. Patient's labs appear stable. Continue IV Levaquin and Rocephin Also continue IV Lasix. I will increase Solu-Medrol to every 8 hours Continue the Toprol. Patient is currently on a Cardizem drip 5 mL's per hour Once again I will speak to the family today about CODE STATUS, I do not think that this is a new mental status change I think is been ongoing for some time and is worsened. I think the patient is going to be very difficult to manage medically, his outcome is unknown but on a poor prognosis trend. 08/31/2019 Patient once again is tachycardic this morning, baseline heart rate appears to be about 110 but he is gone back up to 133. Patient's Cardizem drip is at 15 mL's. Patient has been started on IV digoxin and this appears to be helpful. Patient is maintaining his blood pressure now at approximately 140/50 although it does fluctuate as well Patient is able to maintain an oxygen saturation in the mid 90s with only 2 or 3 L of oxygen by nasal cannula. I suspect this will be the patient's new norm. Patient's blood gas yesterday was actually better yesterday than previous days when he was on a much higher flow rate. I will write an order to keep oxygen rate at no higher than 3 L Ativan does not seem to be helping him at all for his agitation he is continually trying to get out of bed. Going to DC that and instead switch him over to morphine every 4 hours. Hopefully I can speak with some family members today concerning feeding status and once again approach CODE STATUS. I think patient would be better served if he was on hospice status. I agree with cardiology I think his encephalopathy was present prior to coming to the hospital, ever it is been worsened by his pneumonia, hypoxia, poor nutritional status. I am going to recheck labs today. I Discussed patient's care with cardiology yesterday and with nursing staff today 09/01/2019 Please see the separate provider note dictated concerning hospice Patient remains tachycardic anywhere from 120-130. Patient is on Lanoxin 0.125 mg IV daily, Toprol 50 mg every 12 hours. Cardizem drip is been discontinued as it was not effective. EKG today shows persistent A. fib Patient continues IV Rocephin and Levaquin Serial blood gas done yesterday actually looks pretty good and in fact much better than for 5 days ago. Blood cultures are negative x5 days Patient does not take any nutrition in. Being tube or PEG tube is not rec ommended Family states patient has been going hill and getting worse at least for the last 2 months. There was some sort of emotional event about 2 months ago and ever since then she has been agitated confused and demented Hospice is scheduled to come by and talk to the family members today for ref erral home - Time Time Spent with patient: 25-34 minutes
[2019-09-01 14:09] VITALS: BP 140/74
== END 2019-09-01 17:15 | disposition hospice, home (50) | DRG 871 ==
LOC: ER 20:57 → EH 22:48 → 4S 08-25 00:58 → 3W 08-25 19:49
PROVIDERS: ADMIT Internal Medicine; ATTEND Physician Assistant
PROC: 5A09557 Assistance with Respiratory Ventilation, Greater than 96 Consecutive Hours, Continuous Positive Airway Pressure (ICD-10-PCS; principal; 2019-08-24)
DX: A41.9 Sepsis, unspecified organism (principal); J18.9 Pneumonia, unspecified organism; J96.01 Acute respiratory failure with hypoxia; G93.41 Metabolic encephalopathy; J44.1 Chronic obstructive pulmonary disease with (acute) exacerbation; I48.20 Chronic atrial fibrillation, unspecified; J44.0 Chronic obstructive pulmonary disease with (acute) lower respiratory infection; E78.5 Hyperlipidemia, unspecified; I10 Essential (primary) hypertension; F32.9 Major depressive disorder, single episode, unspecified; F41.1 Generalized anxiety disorder; F17.210 Nicotine dependence, cigarettes, uncomplicated; I44.7 Left bundle-branch block, unspecified; I25.2 Old myocardial infarction; I27.20 Pulmonary hypertension, unspecified; R65.20 Severe sepsis without septic shock; Z78.1 Physical restraint status; Z95.5 Presence of coronary angioplasty implant and graft; Z96.649 Presence of unspecified artificial hip joint; Z60.2 Problems related to living alone; Z79.02 Long term (current) use of antithrombotics/antiplatelets; Z79.899 Other long term (current) drug therapy; Z79.82 Long term (current) use of aspirin
CPT/HCPCS: 36415; 36600; 71045; 80048; 80053; 80061; 81001; 82140; 82803; 83605; 83735; 83880; 84439; 84443; 84481; 85025; 85027; 85610; 87040; 93005; 93010; 93306; 94660; 94668; 94799; 99285; J0696; J1160; J1630; J1644; J1650; J1940; J1956; J2060; J2270; J2920; J2930; J3360; J3480; J3490; J7030; J7620